=== PATIENT | male | born 1945 | race Caucasian/White ===

== ENCOUNTER 2021-12-20 09:10 | Outpatient (REF) | payer MEDICARE, SELFPAY ==
--- NOTE | ~2021-12-20 | XR_ITS ---
EXAMINATION: XR KNEE AP STANDING CLINICAL INFORMATION: Pain COMPARISON: None TECHNIQUE: AP and lateral bilateral standing view of the knees was obtained. FINDINGS: Left: Bone alignment is normal. No fracture or dislocation is seen. There is mild arthritis at the femoral tibial and patellofemoral joints with small osteophytes. There is a small joint effusion. Right: Bone alignment is normal. No fracture or dislocation is seen. There is mild arthritis at the patellofemoral joint with small osteophytes. There is no joint effusion. XR/XR knee standing BI IMPRESSION: Mild bilateral arthritis.
[2021-12-20 11:29] LABS: MANUAL DIFF FLAG NO
[2021-12-20 11:32] LABS: Appearance Urine CLEAR; Color Urine YELLOW; Glucose Urine UA NEG (NEG); Leukocyte Esterase Urine NEG (NEG); Nitrite Urine NEG (NEG); Urine Blood NEG (NEG); Urine Ketones NEG (NEG); Urine Protein TRACE MG/DL (NEG-TRACE)
[2021-12-20 11:58] LABS: Basophils Percent Auto 0.6 % (0-2); Eosinophils Absolute Auto 0.1 X10*3/uL (0.0-0.4); Eosinophils Percent Auto 0.7 % (0-4); Hematocrit 45.7 % (42.0-52.0); Hemoglobin 15.3 g/dl (14.0-18.0); Imm Gran Abs Auto 0.05 X10*3/uL (0.00-0.03); Imm Gran Pct Auto 0.7 % (0.0-0.4); Lymphocytes Absolute Auto 1.8 X10*3/uL (1.2-4.9); Lymphocytes Percent Auto 25.9 % (20-40); Mean Corpuscular HGB Conc 33.5 g/dl (31.0-36.0); Mean Corpuscular Hemoglobin 30.9 pg (27.0-33.0); Mean Corpuscular Volume 92.3 fL (80.0-98.0); Mean Platelet Volume 8.7 fL (9.4-12.4); Monocytes Absolute Auto 0.7 X10*3/uL (0.1-1.2); Monocytes Percent Auto 9.9 % (2-11); Neutrophils Absolute Auto 4.3 x10*3/uL (2.0-8.3); Neutrophils Percent Auto 62.2 % (45-73); Platelet Count 171 X10*3/uL (160-400); Red Blood Count 4.95 X10*6/uL (4.60-5.80); Red Cell Distribution Width 13.2 % (11.0-16.0)
[2021-12-20 12:23] LABS: Prostate Specific Antigen Scr 3.08 ng/mL (<0.05-4.0); TSH reflex Free T4 1.08 uIU/mL (0.32-4.0)
[2021-12-20 13:00] LABS: Alanine Aminotransferase 21 U/L (0-40); Albumin Level 4.3 g/dL (3.5-5.0); Alkaline Phosphatase 69 U/L (39-117); Anion Gap 11 (12-20); Aspartate Amino Transferase 21 U/L (5-37); Bilirubin Total 1.1 mg/dL (0.0-1.0); Blood Urea Nitrogen 19 mg/dL (9-16); Calcium 9.4 mg/dL (8.4-10.2); Carbon Dioxide 27 mmol/L (22-29); Chloride 105 mmol/L (96-108); Cholesterol 302 mg/dL; Estimated Glomerular Filt Rate > 60; Glucose Fasting 119 mg/dL (60-99); HDL Cholesterol 59 mg/dL; LDL Cholesterol Calculated 227 mg/dl; Potassium 4.9 mmol/L (3.3-5.1); Sodium 138 mmol/L (135-145); Total Protein 7.8 g/dL (6.5-8.0); Triglycerides 83 mg/dL
== END 2021-12-20 09:11 | disposition home or self-care (01) ==
LOC: HO.HMGCX 09:10
PROVIDERS: PCP Nurse Practitioner Family; Visit Provider Nurse Practitioner Family
DX: Z12.5 Encounter for screening for malignant neoplasm of prostate (principal); M25.561 Pain in right knee; M25.562 Pain in left knee; I10 Essential (primary) hypertension
CPT/HCPCS: 36415; 73565; 80053; 80061; 81003; 84153; 84443; 85025

== ENCOUNTER → 2022-01-10 10:20 | Outpatient (BNVA) | payer MEDICARE, SELFPAY | PROVIDERS: PCP Nurse Practitioner Family; Visit Provider Physician Assistant | DX: Z12.11 Encounter for screening for malignant neoplasm of colon (principal); R56.9 Unspecified convulsions; G47.30 Sleep apnea, unspecified | CPT/HCPCS: 99202 ==

== ENCOUNTER 2022-02-17 09:49 | Outpatient (REF) | payer MEDICARE, SELFPAY ==
[2022-02-17 11:28] LABS: MANUAL DIFF FLAG NO
[2022-02-17 11:32] LABS: Basophils Absolute Auto 0.1 X10*3/uL (0.0-0.2); Basophils Percent Auto 0.8 % (0-2); Eosinophils Absolute Auto 0.2 X10*3/uL (0.0-0.4); Eosinophils Percent Auto 2.5 % (0-4); Hematocrit 42.7 % (42.0-52.0); Hemoglobin 14.5 g/dl (14.0-18.0); Imm Gran Abs Auto 0.05 X10*3/uL (0.00-0.03); Imm Gran Pct Auto 0.8 % (0.0-0.4); Lymphocytes Absolute Auto 1.9 X10*3/uL (1.2-4.9); Lymphocytes Percent Auto 31.2 % (20-40); Mean Corpuscular Hemoglobin 31.6 pg (27.0-33.0); Mean Platelet Volume 8.6 fL (9.4-12.4); Monocytes Absolute Auto 0.6 X10*3/uL (0.1-1.2); Monocytes Percent Auto 10.5 % (2-11); Neutrophils Absolute Auto 3.3 x10*3/uL (2.0-8.3); Neutrophils Percent Auto 54.2 % (45-73); Platelet Count 184 X10*3/uL (160-400); Red Blood Count 4.59 X10*6/uL (4.60-5.80); Red Cell Distribution Width 13.6 % (11.0-16.0)
[2022-02-17 12:00] LABS: Alanine Aminotransferase 15 U/L (0-40); Alkaline Phosphatase 70 U/L (39-117); Anion Gap 13 (12-20); Aspartate Amino Transferase 18 U/L (5-37); Blood Urea Nitrogen 15 mg/dL (9-16); Calcium 9.2 mg/dL (8.4-10.2); Carbon Dioxide 27 mmol/L (22-29); Chloride 105 mmol/L (96-108); Cholesterol 234 mg/dL; Estimated Glomerular Filt Rate > 60; Glucose Fasting 99 mg/dL (60-99); HDL Cholesterol 50 mg/dL; LDL Cholesterol Calculated 169 mg/dl; Sodium 140 mmol/L (135-145); Total Protein 7.3 g/dL (6.5-8.0); Triglycerides 75 mg/dL
== END 2022-02-17 09:50 | disposition home or self-care (01) ==
LOC: HO.HMGCLDS 09:49
PROVIDERS: PCP Nurse Practitioner Family; Visit Provider Nurse Practitioner Family
DX: E78.5 Hyperlipidemia, unspecified (principal); I10 Essential (primary) hypertension
CPT/HCPCS: 36415; 80053; 80061; 85025

== ENCOUNTER 2022-06-19 09:36 | Outpatient (REF) | payer MEDICARE, SELFPAY ==
[2022-06-19 11:30] LABS: MANUAL DIFF FLAG NO
[2022-06-19 11:36] LABS: Basophils Absolute Auto 0.1 X10*3/uL (0.0-0.2); Eosinophils Absolute Auto 0.2 X10*3/uL (0.0-0.4); Eosinophils Percent Auto 2.4 % (0-4); Hematocrit 46.6 % (42.0-52.0); Hemoglobin 15.8 g/dl (14.0-18.0); Imm Gran Abs Auto 0.05 X10*3/uL (0.00-0.03); Imm Gran Pct Auto 0.8 % (0.0-0.4); Lymphocytes Absolute Auto 2.1 X10*3/uL (1.2-4.9); Mean Corpuscular HGB Conc 33.9 g/dl (31.0-36.0); Mean Corpuscular Volume 94.5 fL (80.0-98.0); Mean Platelet Volume 8.6 fL (9.4-12.4); Monocytes Absolute Auto 0.6 X10*3/uL (0.1-1.2); Monocytes Percent Auto 8.8 % (2-11); Neutrophils Absolute Auto 3.4 x10*3/uL (2.0-8.3); Platelet Count 163 X10*3/uL (160-400); Red Blood Count 4.93 X10*6/uL (4.60-5.80); Red Cell Distribution Width 12.3 % (11.0-16.0); White Blood Count 6.2 X10*3/uL (4.8-10.8)
[2022-06-19 11:50] LABS: Appearance Urine Clear; Color Urine Yellow; Glucose Urine UA Negative (Negative); Leukocyte Esterase Urine Trace (Negative); Nitrite Urine Negative (Negative); UMIC TRIGGER UA YES; Urine Blood Negative (Negative); Urine Ketones 15 mg/dL (Negative); Urine Protein Trace mg/dL (Neg-Trace)
[2022-06-19 11:54] LABS: Bacteria Urine None Seen (None Seen); Hyaline Casts Urine 0-2 /LPF (0-2); RBC Urine 0-2 /HPF (0-2); Squamous Epithelial Cell Urine 0-2 /HPF (0-2); WBC Urine 0-5 /HPF (0-5)
[2022-06-19 12:31] LABS: Alanine Aminotransferase 19 U/L (0-40); Albumin Level 4.2 g/dL (3.5-5.0); Alkaline Phosphatase 75 U/L (39-117); Anion Gap 12 (12-20); Aspartate Amino Transferase 19 U/L (5-37); Bilirubin Total 1.1 mg/dL (0.0-1.0); Blood Urea Nitrogen 13 mg/dL (9-16); Calcium 9.4 mg/dL (8.4-10.2); Carbon Dioxide 28 mmol/L (22-29); Chloride 106 mmol/L (96-108); Cholesterol 269 mg/dL; Estimated Glomerular Filt Rate > 60; Glucose Fasting 94 mg/dL (60-99); HDL Cholesterol 53 mg/dL; LDL Cholesterol Calculated 194 mg/dl; Potassium 4.3 mmol/L (3.3-5.1); Prostate Specific Antigen Scr 2.97 ng/mL (<0.05-4.0); Sodium 142 mmol/L (135-145); TSH reflex Free T4 1.79 uIU/mL (0.32-4.0); Total Protein 7.6 g/dL (6.5-8.0); Triglycerides 112 mg/dL
[2022-06-21 07:14] LABS: Lyme Abs Screen <0.90 index
== END 2022-06-19 09:37 | disposition home or self-care (01) ==
LOC: HO.HMGCLDS 09:36
PROVIDERS: PCP Nurse Practitioner Family; Visit Provider Nurse Practitioner Family
DX: Z12.5 Encounter for screening for malignant neoplasm of prostate (principal); T14.8XXA Other injury of unspecified body region, initial encounter; W57.XXXA Bitten or stung by nonvenomous insect and other nonvenomous arthropods, initial encounter; E78.5 Hyperlipidemia, unspecified; R32 Unspecified urinary incontinence
CPT/HCPCS: 36415; 80053; 80061; 81001; 84153; 84443; 85025; 86617; 86618; 87086

== ENCOUNTER 2022-11-03 09:00 | Outpatient (RCR) | payer MEDICARE, SELFPAY ==
--- NOTE | 2022-09-26 11:49 | MHC.PT.EP ---
[facility] [place] Office [place] Office [place] Office [address] Chase Higgins [address] [phone] F: [phone] F: [phone] F: [phone] F: [phone] Physical Therapy Plan of Care Date of Evaluation: Date of Surgery: n/a Diagnosis: pain in knee, mild ostero B Assessment: Patient is a 76 year old male presenting to PT with complaints of pain in his B knees. Pt reports onset of pain began about 1 year ago due to insidious onset. He presents today with impairments in pain, knee ROM, knee strength, hip strength. Pt's current occupation is retired, with baseline physical activities including ADLs, stair negotiation, ambulation. 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 Clinical presentation today is most consistent with signs and sx associated with xray findings of OA and pt will benefit from skilled PT 2 week x 4 weeks to address the following problems and impairments noted upon evaluation: pain, knee ROM, knee strength, hip strength. These problems limit the patient with the following functional activities: ADLs, ambulating, stair negotiating, picking up objects from the floor. The prescribed treatment plan of care is medically necessary. Co-morbidities of seizures, HTN were identified and taken into considerations of plan of care. Pt was educated on HEP, role of PT, prognosis, POC. Frequency and Duration: The patient will be seen 2 x week x 4 weeks Short Term Goals: Pt will demonstrate B knee extension strength of 5/5 in 2 weeks. Pt will demonstrate improved hip MMT strength by 13 grade in 2 weeks for improved lumbopelvic stability. Pt will report less stiffness with flexing/extending his knees in 2 weeks for improved mobility. Hand Painter Goals: Pt will demonstrate improved LEFI score by 9 points in 4 weeks for improved functional mobility. Pt will demonstrate reports of improved ability to negotiate stairs with min to no pain/difficulty in 4 weeks for return to PLOF. 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 Treatment Plan: Modalities to reduce pain, spasms and effusion. Manual therapy to restore motion and function. Therapeutic exercise to improve strength and flexibility. Neuromuscular re-education for posture and balance. Therapeutic activities to return to functional activities of daily living. Electronically signed by: Delores García, PT, DPT, ATC Please sign and return to therapist. Thank you for your referral.
--- NOTE | 2022-11-03 09:55 | MHC.PT.DC ---
[facility] [place] Office [place] Office [place] Office [address] Chase Higgins [address] [phone] F: [phone] F: [phone] F: [phone] F: [phone] Physical Therapy Discharge Report Diagnosis: pain in knee, mild ostero B Date of Surgery: n/a Date of Evaluation: 09/26/22 Date of Discharge: 11/03/22 Treatments to Date: 10 Cancellations to Date: 0 No Shows to Date: 0 Discharge Status: Improved Function Independent with HEP Discharge Summary: 11/03/2022: Pt has made progress since beginning skilled PT. He is independent and compliant with his HEP at this time and understands importance of halfway continuation. We again reviewed that it may not be a safe/appropriate activity to return to riding a regular road bike due to balance and ROM limitations. Discussed and recommended other options that reduce balance component like 3 wheeled bike. At this time max benefits of PT have been provided and skilled PT is no longer indicated at this time. Pt in agreement with d/c today. Electronically signed by: Delores García, PT, DPT, ATC Please sign and return to therapist. Thank you for your referral.
== END 2022-11-03 09:55 | disposition home or self-care (01) ==
LOC: HO.PTCHIC 09:00
PROVIDERS: PCP Nurse Practitioner Family; Visit Provider Nurse Practitioner Family
DX: M25.561 Pain in right knee (principal)
CPT/HCPCS: 97110; 97112; 97161; 97530

== ENCOUNTER 2023-02-13 09:16 | Outpatient (AMB) | payer MEDICARE, SELFPAY ==
--- NOTE | 2023-02-13 09:20 | A.OFFVIS_ITS ---
Intake Vital Signs 02/13/23 09:30 Height 5 ft 9 in Weight 216 lb BMI 31.9 BP 122/82 Blood Pressure Location Lt brachial Position Sitting Pulse 66 Pulse Source Pulse Oximeter Pulse Oximetry (%) 95 Oxygen Delivery Method Room Air Intake Visit Reasons: INP-Convulsions/gait/mobility -confirmed. 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 He also has h/o seizures ? alcohol related - followed up by Dr. Stubbs at [facility]. He was diagnosed with sleep apnea in 2018 - started on CPAP.He was seen by Dr. Robles and has been on CPAP 10-14 since then. His home care company is [facility]. He stopped getting supplies from his REspiratory therapists. His 90 day compliance data shows 96% usage Daily usage hrs-9 pressure 10-14 AHI 6 He has h/o heavy alcohol use . He started drinking heavily in 2018. He drinks 3- 4 glasses of wine or more. He had his first seizure in 2019 - EEG showed a mar ker for partial seizures, MRI showed white matter changes.2 and 3rd seizure was 2020. Last seizure was last week- was admitted to [facility]- he was drinking 3-4 glasses of wine.He was told that his seizures were related to alcohol but Dr. Stubbs s notes imply an abnormal EEG and partial seizure. He has an appointment next month.He does not drive He has h/o gait issues mainly related to his arthritis. 1 year ago he had a fall . He has neck stiffness and pain since then . He also has h/o urinary incontinence since 2020.He has urinary frequency urgency He denies radicular pain in his UE [facility] Medical History (Updated 02/13/23 @ 10:32 by Angelia Recinos MD) Cervicalgia Elevated cholesterol HTN (hypertension) Obstructive sleep apnea Seizure disorder Seizures Sleep apnea Surgical History Hx of colonoscopy Family History Father HTN (hypertension) Mother No problems noted. Family/Other Stroke Cancer Breast cancer Social History Housing: House Alcohol intake: former Patient Tobacco Use Status: Never used Tobacco e-Cigarette/Vaping Use: Never Used Second Hand Smoke Exposure: No service: No Current occupational status: retired Cognitive needs: No Hearing needs: No Vision needs: No Review of Systems Const Denies chills and Denies fever(s) Eyes Denies blurry vision ENT Denies vertigo, Denies dizziness and Denies sore throat Card Denies chest pain at rest, Denies chest pain with activity, Denies diaphoresis, Denies dyspnea and Denies dyspnea on exertion Resp Denies cough, Denies dyspnea, Denies dyspnea on exertion and Denies wheezing GI Denies abdominal pain, Denies melena, Denies hematochezia, Denies constipation, Denies diarrhea and Denies loose stools Denies hematuria and Reports urinary incontinence Musc Denies numbness and Denies tingling Skin/Breast Denies lesions Neuro Denies vertigo, Denies dizziness, Denies numbness and Denies tingling Psych Denies anxiety, Denies depression, Denies homicidal ideation, Denies suicidal ideation and Denies other (substance abuse) Aller/Immun Denies wheezing Physical Exam Vital Signs: Last Vital Signs Pulse 66 02/13/23 09:30 BP 122/82 02/13/23 09:30 Pulse Ox 95 02/13/23 09:30 Oxygen Delivery Method Room Air 02/13/23 09:30 BMI result Body Mass Index 31.9 Const General: cooperative, healthy appearing, comfortable and no acute distress Nutritional Appearance: average body habitus Orientation/consciousness: patient oriented x3 Eyes Pupils: Equal, round and reactive pupils present Neuro Other: neck- restricted range of motion gait- shorter steps, slow General: patient oriented x3, tone normal, moves all extremities and no focal motor deficits Cranial nerves: Yes Facial sensation intact/muscles of mastication intact, Yes Equal, round and reactive pupils present, Yes Bilaterally intact EOM present, Yes Nystagmus not present, Yes Normal facial strength present, Yes Midline tongue present and Yes Symmetric palate elevation present Cognition (Neuro): normal cognition Motor exam (neuro): 5/5 motor strength present throughout and Normal motor muscle tone present throughout Deep tendon reflexes (DTR's): Right triceps reflex intensity grade: 2+, Left triceps reflex intensity grade: 2+, Rt Biceps (C5, C6): 2+, Left biceps reflex intensity grade: 2+, Right brachioradialis reflex intensity grade: 2+, Left brac hioradialis reflex intensity grade: 2+, Right patellar reflex intensity grade: 3+ and Left patellar reflex intensity grade: 3+ Coordination: [id number] test normal Assessment & Plan Assessment & Plan (1) Obstructive sleep apnea: Code(s): G47.33 - Obstructive sleep apnea (adult) (pediatric) (2) Cervicalgia: Comment: with shuffling urinary incontinence, ? cervical myelopathy Code(s): M54.2 - Cervicalgia (3) Seizure disorder: Code(s): G40.909 - Epilepsy, unspecified, not intractable, without status epilepticus Plan Contact [facility] for new supplies Compliance stressed with CPAP MRI C spine to evaluate cord compression / spinal stenosis continue gabapentin and f/u with Dr. Stubbs Orders: Orders MR cervical spine wo con Today M54.2 - Cervicalgia, R26.89 - Other abnormalities of gait and mobility, R32 - Unspecified urinary incontinence Coding Level of Care Code New Pt Level 4 (73472) Diagnoses Obstructive sleep apnea G47.33 Cervicalgia M54.2 Seizure disorder G40.909
[2023-02-13 09:30] VITALS: BP 122/82; PULSE 66; O2SAT 95; BMI 31.9
== END 2023-02-13 10:22 | disposition home or self-care (01) ==
PROVIDERS: Visit Provider Psychiatry & Neurology Neurology
DX: G47.33 Obstructive sleep apnea (adult) (pediatric) (principal); M54.2 Cervicalgia; G40.909 Epilepsy, unspecified, not intractable, without status epilepticus
CPT/HCPCS: 99204

== ENCOUNTER → 2023-02-13 09:16 | Outpatient (BNVA) | payer MEDICARE, SELFPAY | PROVIDERS: Visit Provider Psychiatry & Neurology Neurology | DX: G47.33 Obstructive sleep apnea (adult) (pediatric) (principal); G40.909 Epilepsy, unspecified, not intractable, without status epilepticus; M54.2 Cervicalgia | CPT/HCPCS: 99202 ==

== ENCOUNTER 2023-02-19 10:47 | Outpatient (AMB) | payer MEDICARE, SELFPAY ==
--- NOTE | 2023-02-19 10:56 | A.OFFPC_ITS ---
Vital Signs 02/19/23 10:57 Height 5 ft 9 in Weight 215 lb BMI 31.7 BP 142/88 H Blood Pressure Location Lt brachial Position Sitting Pulse 65 Pulse Source Pulse Oximeter Pulse Oximetry (%) 93 Oxygen Delivery Method Room Air Intake Visit Reasons: HDF seizure, htn Allergies No Known Allergies Allergy (Verified 02/19/23 13:33) Medication List - Last Reconciled 02/19/23 by MADHAVI Agustin- amlodipine 5 mg PO DAILY CPAP (CPAP Machine/Device) As directed gabapentin 600 mg PO BID lisinopril 40 mg PO DAILY [raised toilet seat daily use NS] Tobacco use date assessed: 02/19/23 Fall risk assessment: No Falls in past year Last assessed Fall Risk: 02/19/23 Dental Screening Dental Screen Date: 02/19/23 Did you have a dental visit in the last 12 months?: No Did you have a dental problem in the last 6 months where you did not have access to dental care?: No Was dental information given to patient?: Patient has dentist HPI HDF seizure, htn HPI Details Pt was seen in the ER on 02/08 with breakthrough seizures. Pt's reported seizure activity with confusion and abnormal breathing after. Pt was noted to hypoxic in the 80s and was started on 6L of O2. Pt was able to be weaned off oxygen in the ER. Pt was noted to have anion gap metabolic acidosis as well as transaminitis which resolved over time. Head CT was negative for acute abnormality. CTA of the chest was negative for PE but showed low lung volu mes. Neurology was consulted who recommended pt's keppra be stopped and gabapentin increased to 600mg bid. Pt was advised not to take gabapentin with alcohol as this may have caused his seizure activity. Initial evaluation showed elevated troponin, echo showed normal LVEF size, EF of 55-60%, basal inferior wall akinesis with normal diastolic function which is largely unchanged from prior. Troponin elevation was thought to be demand related, no evidence of ischemia. It was recommended that pt follow up with cardiology outpatient, will place referral. Pt was noted to be hypertensive during admission. He was started on amlodipine. Pt reports doing well overall. He does report some short-term memory loss (baseline). Will refer to memory clinic. HTN: Blood pressure is managed with amlodipine 5mg and lisinopril 40mg. Will have pt/pt's monitor his blood pressure at home. Denies chest pain, shortness of breath, headache, dizziness, and blurred vision. Will do an EKG in office today. Pt no longer drinks alcohol. He has a follow up with neuro in the near future [facility] Medical History Cervicalgia Elevated cholesterol HTN (hypertension) Obstructive sleep apnea Seizure disorder Seizures Sleep apnea Surgical History Hx of colonoscopy Family History Father HTN (hypertension) Mother No problems noted. Family/Other Stroke Cancer Breast cancer Social History Housing: House Alcohol intake: former Patient Tobacco Use Status: Never used Tobacco e-Cigarette/Vaping Use: Never Used Second Hand Smoke Exposure: No service: No Current occupational status: retired Cognitive needs: No Hearing needs: No Vision needs: No Questionnaire Thrive Questionnaire Date Thrive assessed: 05/23/22 MOSES-7 AMB Questionnaire MOSES-7 Date MOSES - 7 assessed: 05/23/22 Source: Developed by Drs. See Elder, Elena Jorge, Keith Calvillo and colleagues, with an educational kell from [employer]. Review of Systems Const Reports as per HPI Physical exam (Primary Care) Vital Signs: Last Vital Signs Pulse 65 02/19/23 10:57 BP 142/88 H 02/19/23 10:57 Pulse Ox 93 02/19/23 10:57 Oxygen Delivery Method Room Air 02/19/23 10:57 BMI result Body Mass Index 31.7 Tobacco/Smoking Status: Tobacco use Status Tobacco use date assessed 02/19/23 02/19/23 11:05 Patient Tobacco Use Status Never used Tobacco 02/19/23 10:57 e-Cigarette/Vaping Use Never Used 02/19/23 10:57 Thrive Assessment: Date of Thrive Assessment Date Thrive assessed 05/23/22 02/19/23 10:57 Const General: cooperative Nutritional Appearance: obese Orientation/consciousness: patient oriented x3 Resp Effort & Inspection: normal respiratory effort Auscultation: clear to auscultation bilaterally Cardio Rate: regular rate Rhythm: regular rhythm Heart sounds: S1 normal heart sound present and S2 normal heart sound present Neuro Other: - romberg General: patient oriented x3 Cranial nerves: Yes CN's II-XII intact bilaterally Extrem Right lower extremity: edema (trace) Left lower extremity: edema (trace) Psych Appearance: grossly normal Mental Status: mental status grossly normal Speech and movement: Normal speech and movement present Affect: normal affect Attitude: cooperative Thought process: Normal thought process present Thought content: Normal thought content present Insight: Good insight present (Psych) Judgement: Good judgement present (Psych) Assessment and Plan Assessment & Plan (1) HTN (hypertension): Code(s): I10 - Essential (primary) hypertension (2) Dyslipidemia: Code(s): E78.5 - Hyperlipidemia, unspecified (3) Screening PSA (prostate specific antigen): Code(s): Z12.5 - Encounter for screening for malignant neoplasm of prostate (4) Seizure: Comment: Last seizure- 02/21- Code(s): R56.9 - Unspecified convulsions (5) Cardiac akinesia: Code(s): I51.89 - Other ill-defined heart diseases (6) Seizure disorder: Code(s): G40.909 - Epilepsy, unspecified, not intractable, without status epilepticus Plan The patient agreed to the use of a medical center representative for this encounter. Scribed for STEPHEN Choi by Alma Dhillon medical center representative, on 02/19/2023 at 11:25 EST. Orders: Orders Complete Blood Count Auto Diff Today E78.5 - Hyperlipidemia, unspecified, I10 - Essential (primary) hypertension Comprehensive [place]. Panel Fast Today E78.5 - Hyperlipidemia, unspecified, I10 - Essential (primary) hypertension Lipid Panel Today E78.5 - Hyperlipidemia, unspecified, I10 - Essential (primary) hypertension TSH reflex Free T4 Today E78.5 - Hyperlipidemia, unspecified, I10 - Essential (primary) hypertension UA CC w/rflx Micro + Cult Today E78.5 - Hyperlipidemia, unspecified, I10 - Essential (primary) hypertension Prostate Specific Antigen Scr Today Z12.5 - Encounter for screening for malignant neoplasm of prostate AMB EKG-In Office Today G40.909 - Epilepsy, unspecified, not intractable, without status epilepticus, I10 - Essential (primary) hypertension, I51.89 - Other ill-defined heart diseases Referrals Neurology Referral R41.3 - Other amnesia Cardiology Referral I45.9 - Conduction disorder, unspecified, I51.89 - Other ill-defined heart diseases Medications: New amlodipine 5 mg PO DAILY 90 tabs 0RF Coding Level of Care Code Est Pt Level 3 (82974) Diagnoses HTN (hypertension) I10 Dyslipidemia E78.5 Screening PSA (prostate specific antigen) Z12.5 Seizure R56.9 Cardiac akinesia I51.89 Seizure disorder G40.909
[2023-02-19 10:57] VITALS: BP 142/88; PULSE 65; O2SAT 93; BMI 31.7
== END 2023-02-19 12:11 | disposition home or self-care (01) ==
PROVIDERS: PCP Nurse Practitioner Family; Visit Provider Nurse Practitioner Family
DX: I10 Essential (primary) hypertension (principal); E78.5 Hyperlipidemia, unspecified; Z12.5 Encounter for screening for malignant neoplasm of prostate; I51.89 Other ill-defined heart diseases; G40.909 Epilepsy, unspecified, not intractable, without status epilepticus
CPT/HCPCS: 99213

== ENCOUNTER 2023-02-22 09:33 | Outpatient (REF) | payer MEDICARE, SELFPAY ==
[2023-02-22 11:21] LABS: MANUAL DIFF FLAG NO
[2023-02-22 11:43] LABS: Basophils Absolute Auto 0.1 X10*3/uL (0.0-0.2); Basophils Percent Auto 0.8 % (0-2); Eosinophils Absolute Auto 0.2 X10*3/uL (0.0-0.4); Eosinophils Percent Auto 2.3 % (0-4); Hematocrit 42.2 % (42.0-52.0); Hemoglobin 14.4 g/dl (14.0-18.0); Imm Gran Abs Auto 0.03 X10*3/uL (0.00-0.03); Imm Gran Pct Auto 0.5 % (0.0-0.4); Lymphocytes Absolute Auto 2.3 X10*3/uL (1.2-4.9); Lymphocytes Percent Auto 34.6 % (20-40); Mean Corpuscular HGB Conc 34.1 g/dl (31.0-36.0); Mean Corpuscular Hemoglobin 31.4 pg (27.0-33.0); Mean Corpuscular Volume 92.1 fL (80.0-98.0); Mean Platelet Volume 8.6 fL (9.4-12.4); Monocytes Absolute Auto 0.7 X10*3/uL (0.1-1.2); Monocytes Percent Auto 10.6 % (2-11); Neutrophils Absolute Auto 3.4 x10*3/uL (2.0-8.3); Neutrophils Percent Auto 51.2 % (45-73); Platelet Count 214 X10*3/uL (160-400); Red Blood Count 4.58 X10*6/uL (4.60-5.80); Red Cell Distribution Width 11.9 % (11.0-16.0); White Blood Count 6.6 X10*3/uL (4.8-10.8)
[2023-02-22 13:06] LABS: Alanine Aminotransferase 29 U/L (0-40); Albumin Level 3.9 g/dL (3.5-5.0); Alkaline Phosphatase 55 U/L (39-117); Anion Gap 11 (12-20); Aspartate Amino Transferase 19 U/L (5-37); Bilirubin Total 1.1 mg/dL (0.0-1.0); Blood Urea Nitrogen 16 mg/dL (9-16); Calcium 9.8 mg/dL (8.4-10.2); Carbon Dioxide 26 mmol/L (22-29); Chloride 108 mmol/L (96-108); Cholesterol 211 mg/dL (<200); Estimated Glomerular Filt Rate > 60; Glucose Fasting 77 mg/dL (60-99); HDL Cholesterol 36 mg/dL (>40); LDL Cholesterol Calculated 151 mg/dL (<100); Potassium 3.9 mmol/L (3.3-5.1); Sodium 141 mmol/L (135-145); Total Protein 7.6 g/dL (6.5-8.0); Triglycerides 120 mg/dL (<150)
[2023-02-22 13:11] LABS: Prostate Specific Antigen Scr 1.65 ng/mL (<0.05-4.0)
[2023-02-22 13:13] LABS: TSH reflex Free T4 0.89 uIU/mL (0.32-4.0)
== END 2023-02-22 09:34 | disposition home or self-care (01) ==
LOC: HO.HMGCLDS 09:33
PROVIDERS: PCP Nurse Practitioner Family; Visit Provider Nurse Practitioner Family
DX: E78.5 Hyperlipidemia, unspecified (principal); I10 Essential (primary) hypertension; Z12.5 Encounter for screening for malignant neoplasm of prostate
CPT/HCPCS: 36415; 80053; 80061; 84153; 84443; 85025

== ENCOUNTER 2023-05-10 08:33 | Outpatient (REF) | payer MEDICARE, SELFPAY ==
--- NOTE | ~2023-05-10 | MR_ITS ---
EXAMINATION: MR CERVICAL SPINE WITHOUT CONTRAST CLINICAL INFORMATION: Cervicalgia COMPARISON: None TECHNIQUE: MRI of the cervical spine was obtained using routine sequences without contrast. FINDINGS: The craniocervical junction is intact. Reversal of the lower cervical lordosis. Grade 1 anterolisthesis at C4-C5 greater than C5-C6. Vertebral body heights are normal without acute compression fracture. No suspicious osseous lesion. Diffuse disc desiccation with moderate to severe C5-C6 and milder C4-C5 and C6-C7 disc height loss. Trace type I Modic endplate change at C4-C5. There are multilevel degenerative changes with level by level detail as follows: C2-C3: Left greater than right uncovertebral spurring and mild bilateral facet arthrosis. No spinal canal or neural foraminal stenosis. C3-C4: Disc osteophyte complex with left greater than right uncovertebral joint hypertrophy and left greater than right facet arthrosis. No spinal canal stenosis. Severe left and mild right neural foraminal stenosis. C4-C5: Uncovertebral posterior disc/disc bulge eccentric to the left with uncovertebral spurring and bilateral facet arthrosis. No spinal canal or significant neural foraminal stenosis. C5-C6: Disc osteophyte complex with central disc osteophyte protrusion, bilateral uncovertebral spurring and mild bilateral facet arthrosis. Mild spinal canal stenosis with indentation and flattening along the left paramedian ventral cord. No neural foraminal stenosis. C6-C7: Disc osteophyte complex with shallow right paracentral disc osteophyte protrusion and bilateral uncovertebral spurring. No spinal canal stenosis, noting flattening along the right ventral cord. No neural foraminal stenosis. C7-T1: No spinal canal or neural foraminal stenosis. No cord signal abnormality. No epidural fluid collection, mass, or hematoma. No significant abnormalities of the paraspinal musculature. The flow voids of the major cervical vessels are maintained. Retropharyngeal course of the left greater than right common carotid arteries. 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 Incompletely characterized 4 mm rounded T1 hypointense, T2 hyperintense focus along the lower midbrain in the ventral periaqueductal region for which further evaluation with contrast-enhanced brain MRI is advised. Dependent debris/retention cyst and a posterior left ethmoid air cell. No demonstrated abnormalities in the visualized neck. MR/MR cervical spine wo con IMPRESSION: 1. Multilevel cervical spondylosis as above without high-grade spinal canal stenosis. At C5-C6, there is mild spinal canal stenosis with indentation and flattening along the left paramedian ventral cord. There is also flattening along the right ventral cord at C6-C7. No cord compression or cord signal abnormality. Severe left C3-C4 neural foraminal stenosis. 2. Incompletely characterized 4 mm rounded T1 hypointense, T2 hyperintense focus along the lower midbrain in the ventral periaqueductal region for which further evaluation with contrast-enhanced brain MRI is advised. Findings to be called to the ordering clinician by a [place] [facility] Physician Lift Truck Operator. 3. 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
== END 2023-05-10 08:34 | disposition home or self-care (01) ==
LOC: HO.MRI 08:33
PROVIDERS: PCP Nurse Practitioner Family; Visit Provider Psychiatry & Neurology Neurology
DX: M54.2 Cervicalgia (principal); R26.89 Other abnormalities of gait and mobility; R32 Unspecified urinary incontinence
CPT/HCPCS: 72141

== ENCOUNTER 2023-05-16 09:32 | Outpatient (REF) | payer MEDICARE, SELFPAY ==
[2023-05-16 12:19] LABS: Alanine Aminotransferase 19 U/L (0-40); Alkaline Phosphatase 57 U/L (39-117); Anion Gap 11 (12-20); Aspartate Amino Transferase 16 U/L (5-37); Bilirubin Total 0.9 mg/dL (0.0-1.0); Blood Urea Nitrogen 14 mg/dL (9-16); Calcium 9.5 mg/dL (8.4-10.2); Carbon Dioxide 30 mmol/L (22-29); Chloride 107 mmol/L (96-108); Cholesterol 187 mg/dL (<200); Estimated Glomerular Filt Rate > 60; Glucose Fasting 94 mg/dL (60-99); HDL Cholesterol 50 mg/dL (>40); LDL Cholesterol Calculated 125 mg/dL (<100); Potassium 4.7 mmol/L (3.3-5.1); Sodium 143 mmol/L (135-145); Total Protein 7.5 g/dL (6.5-8.0); Triglycerides 60 mg/dL (<150)
[2023-05-16 12:30] LABS: Prostate Specific Antigen Scr 1.93 ng/mL (<0.05-4.0)
[2023-05-16 12:36] LABS: TSH reflex Free T4 1.22 uIU/mL (0.32-4.0)
== END 2023-05-16 09:33 | disposition home or self-care (01) ==
LOC: HO.HMGCLDS 09:32
PROVIDERS: PCP Nurse Practitioner Family; Visit Provider Nurse Practitioner Family
DX: Z00.00 Encounter for general adult medical examination without abnormal findings (principal); Z12.5 Encounter for screening for malignant neoplasm of prostate; E78.5 Hyperlipidemia, unspecified
CPT/HCPCS: 36415; 80053; 80061; 84153; 84443

== ENCOUNTER 2023-06-05 08:56 | Outpatient (AMB) | payer MEDICARE, SELFPAY ==
[2023-06-05 08:57] VITALS: BP 126/72; PULSE 66; BMI 31.9
--- NOTE | 2023-06-05 08:57 | MHC.OFFVIS ---
Intake Vital Signs 06/05/23 08:57 Height 5 ft 9 in Weight 216 lb 0.848 oz BMI 31.9 BP 126/72 Blood Pressure Location Lt brachial Position Sitting Pulse 66 Intake Visit Reasons: NPV/Other ill-defined heart diseases/Lefty Hayes Intake Note: New patient hx in seizures concern there could be underline cardiac issue do cardiac issues Director Of Teenage Activities Required: No Medical Laboratory Technologist: Medical Laboratory Technologist Present Accompanied by: Spouse Allergies No Known Allergies Allergy (Verified 02/19/23 13:33) Medication List - Last Reconciled 06/05/23 by Jose Riley MD amlodipine 5 mg PO DAILY atorvastatin 10 mg PO BEDTIME 90 days CPAP (CPAP Machine/Device) As directed gabapentin 600 mg PO BID lisinopril 40 mg PO DAILY [raised toilet seat daily use NS] HPI HPI Comments History of Present Illness Details Thank you for referring Naresh in cardiology consultation today for noted abnormal echocardiogram when he was admitted to [facility] in January for seizure disorder. Patient is a 77-year-old male with prior history of hypertension, sleep apnea, hyperlipidemia and a seizure disorder. Some of the notes from [facility] suggests he has had prior CVA although I do not have the imaging findings. He does not recall ever having stroke. He is accompanied by his who confirms that finding. Patient echocardiogram which showed normal LV ejection fraction with basal inferior akinesis and was referred here for further evaluation. Patient does not recall ever having any heart problems in the past. He denies any prolonged chest pain. Denies any exertional chest pain or shortness of breath. He has limited exercise activity. He is referred here for further evaluation. He denies any prolonged palpitations, irregular heartbeat, lightheadedness, syncope. Denies any heart failure symptoms. He started having seizures in 2019 and this was his 4th episode that led to hospitalization. Currently using gabapentin for the same. In the past used to be on aspirin therapy but currently not taking aspirin. [facility]LY [facility] Medical History Abnormal MRI of head Seizure disorder Obstructive sleep apnea Cervicalgia Seizures Elevated cholesterol HTN (hypertension) Dyslipidemia Sleep apnea Surgical History Hx of colonoscopy Family History Father HTN (hypertension) Mother No problems noted. Family/Other Stroke Cancer Breast cancer Social History Housing: House Alcohol intake: former Patient Tobacco Use Status: Never used Tobacco e-Cigarette/Vaping Use: Never Used Second Hand Smoke Exposure: No service: No Current occupational status: retired Cognitive needs: No Hearing needs: No Vision needs: No Review of Systems Const Denies chills, Denies daytime sleepiness, Denies fatigue, Denies fever(s), Denies frequent falls, Denies poor appetite, Denies snoring, Denies stops breathing during sleep, Denies weakness, Denies weight gain and Denies weight loss Eyes Denies loss of vision ENT Denies dizziness and Denies hearing loss Card Denies chest pain, Denies claudication, Denies leg edema, Denies lightheadedness, Denies palpitations, Denies dyspnea, Denies dyspnea on exertion and Denies orthopnea Resp Denies cough, Denies excessive phlegm production, Denies dyspnea, Denies dyspnea on exertion, Denies snoring and Denies wheezing GI Denies abdominal pain, Denies hematochezia, Denies change in bowel habits, Denies nausea and Denies vomiting Denies dysuria and Denies urinary frequency Musc Denies arthralgias, Denies muscle weakness, Denies numbness and Denies other (frequent falls) Skin/Breast Denies nail changes and Denies rash Neuro Denies Abnormal speech present, Denies dizziness, Denies frequent falls, Denies loss of vision, Denies memory loss, Denies numbness and Denies weakness Psych Denies depression and Denies memory loss Endo Denies fatigue and Denies palpitations Raul/Lymph Reports easy bruising and Reports other (anemia) Aller/Immun Denies wheezing Physical Exam Vital Signs: Last Vital Signs Pulse 66 06/05/23 08:57 BP 126/72 06/05/23 08:57 BMI result Body Mass Index 31.9 Const General: cooperative, comfortable, no acute distress, alert and awake Nutritional Appearance: obese Orientation/consciousness: patient oriented x3 Limitations: no limitations HEENT Head: Yes normocephalic and Yes atraumatic Neck Neck: Yes trachea midline, Yes supple and Yes no JVD Resp Effort & Inspection: normal respiratory effort Auscultation: clear to auscultation bilaterally Cardio Jugular venous distension: no JVD Palpation: normal PMI Rate: regular rate Rhythm: regular rhythm Heart sounds: S1 normal heart sound present, S2 normal heart sound present, no click, no gallops, no murmurs and no rubs GI Auscultation: normal bowel sounds Skin General skin exam: no rashes or lesions noted Neuro General: patient oriented x3 and no focal motor deficits Speech: No Abnormal speech present Extrem General: Yes no clubbing, cyanosis or edema Office Procedures EKG Details: EKG shows normal sinus rhythm with left axis deviation with right bundle-branch block and left ventricular hypertrophy [id number], Complete Assessment & Plan Assessment & Plan (1) 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 He has no prior history of cardiovascular issues. He does have prior history of CVA and has multiple risk factors for vascular assist/atherosclerotic disease. Is possible that he could have silent myocardial ischemia. This needs to be further investigated. If he does have significant burden of ischemia may need further testing and/or treatment. Would suggest a exercise myocardial perfusion imaging. Would avoid Lexiscan in his case and switch to dobutamine if he cannot complete his exercise treadmill stress test. Further treatment based on the findings. If it only shows old scar treatment would be medical with he being on aspirin for secondary prevention. Continue aggressive blood pressure control which is currently well optimized. Continue high-intensity statin therapy with target goal LDL closer to 60 mg/dL. Continue participate in heart healthy lifestyle with regular physical activity and weight loss program. Continue CPAP treatment. If his brain imaging shows old infarct, should get workup for carotid artery disease as well with at least carotid duplex. Will follow up in the clinic in 6 weeks time, sooner p.r.n.. Thank you for allowing me to partake in his care Orders: Orders CA stress test Today I25.2 - Old myocardial infarction, R93.1 - Abnormal findings on diagnostic imaging of heart and coronary circulation NM cardiolite stress test 2 Weeks R07.9 - Chest pain, unspecified Coding Level of Care Code New Pt Level 4 (31885) Diagnoses Old HI (myocardial infarction) I25.2 CPT Codes EKG - CPT: 65524-[id number], Complete ([id number])
== END 2023-06-05 09:52 | disposition home or self-care (01) ==
PROVIDERS: PCP Nurse Practitioner Family; Visit Provider Internal Medicine Cardiovascular Disease
DX: I25.2 Old myocardial infarction (principal)
CPT/HCPCS: 93010; 99204

== ENCOUNTER → 2023-06-05 08:56 | Outpatient (BNVA) | payer MEDICARE, SELFPAY | PROVIDERS: PCP Nurse Practitioner Family; Visit Provider Internal Medicine Cardiovascular Disease | DX: I25.2 Old myocardial infarction (principal) | CPT/HCPCS: 93005; 99202 ==

== ENCOUNTER 2023-06-18 07:18 | Outpatient (AMB) | payer MEDICARE, SELFPAY ==
--- NOTE | 2023-06-18 07:34 | MHC.OFFVIS ---
Intake Vital Signs 06/18/23 07:36 BP 128/80 Blood Pressure Location Rt brachial Position Sitting Pulse 56 Pulse Source Pulse Oximeter Pulse Oximetry (%) 98 Oxygen Delivery Method Room Air Intake Visit Reasons: 4m f/up Convulsions/gait/mobility - Conf. Intake Note: Patient presents for 4 month follow up. Allergies No Known Allergies Allergy (Verified 06/18/23 07:35) Medication List - Last Reconciled 06/18/23 by Angelia Recinos MD amlodipine 5 mg PO DAILY aspirin (Ecotrin Low Strength) 81 mg PO DAILY atorvastatin 10 mg PO BEDTIME 90 days CPAP (CPAP Machine/Device) As directed gabapentin 600 mg PO BID lisinopril 40 mg PO DAILY [raised toilet seat daily use NS] HPI HPI Comments History of Present Illness Details 77y/o male comes for follow up of his sleep apnea and evaluation of shuffling gait. He did well on home PT . His C spine MRI showed multilevel spondylosis without high grade stenosis. There was an incidental 4mm lesion in the midbrain which need further evaluation He sees Dr. Stubbs and his last seizure was in Jan 2023 - his gabapenin was increased to 600mg bid . He stopped alcohol intake [facility] He also has h/o seizures ? alcohol related - followed up by Dr. Stubbs at [facility] Epilepsy clinic. He was diagnosed with sleep apnea in 2018 - started on CPAP.He was seen by Dr. Robles and has been on CPAP 10-14 since then. His home care company is [employer]. His 90 day compliance data shows 96% usage Daily usage hrs-9 pressure 10-14 AHI 6 Previous history 02/13/23-He has h/o heavy alcohol use . He started drinking heavily in 2018. He drinks 3-4 glasses of wine or more. He had his first seizure in 2019 - EEG showed a marker for partial seizures, MRI showed white matter changes.2 and 3rd seizure was 2020. Last seizure was last week- was admitted to [facility]- he was drinking 3-4 glasses of wine.He was told that his seizures were related to alcohol but Dr. Stubbs s notes imply an abnormal EEG and partial seizure. He does not drive He has h/o gait issues mainly related to his arthritis. 1 year ago he had a fall . He has neck stiffness and pain since then . He also has h/o urinary incontinence since 2020.He has urinary frequency urgency He denies radicular pain in his UE [facility] Medical History (Updated 06/18/23 @ 08:08 by Angelia Recinos MD) Disorder of midbrain Abnormal MRI, cervical spine Abnormal MRI of head Seizure disorder Obstructive sleep apnea Cervicalgia Seizures Elevated cholesterol HTN (hypertension) Dyslipidemia Sleep apnea Surgical History Hx of colonoscopy Family History Father HTN (hypertension) Mother No problems noted. Family/Other Stroke Cancer Breast cancer Social History Housing: House Alcohol intake: former Patient Tobacco Use Status: Never used Tobacco e-Cigarette/Vaping Use: Never Used Second Hand Smoke Exposure: No service: No Current occupational status: retired Cognitive needs: No Hearing needs: No Vision needs: No Physical Exam Vital Signs: Last Vital Signs Pulse 56 06/18/23 07:36 BP 128/80 06/18/23 07:36 Pulse Ox 98 06/18/23 07:36 Oxygen Delivery Method Room Air 06/18/23 07:36 Const General: cooperative, healthy appearing, comfortable and no acute distress Nutritional Appearance: average body habitus Orientation/consciousness: patient oriented x3 Eyes Pupils: Equal, round and reactive pupils present Neuro Other: neck- restricted range of motion gait- shorter steps, slow General: patient oriented x3, tone normal, moves all extremities and no focal motor deficits Cranial nerves: Yes Facial sensation intact/muscles of mastication intact, Yes Equal, round and reactive pupils present, Yes Bilaterally intact EOM present, Yes Nystagmus not present, Yes Normal facial strength present, Yes Midline tongue present and Yes Symmetric palate elevation present Cognition (Neuro): normal cognition Motor exam (neuro): 5/5 motor strength present throughout and Normal motor muscle tone present throughout Coordination: [id number] test normal Assessment & Plan Assessment & Plan (1) Obstructive sleep apnea: Code(s): G47.33 - Obstructive sleep apnea (adult) (pediatric) (2) Cervicalgia: Comment: with shuffling urinary incontinence, ? cervical myelopathy Code(s): M54.2 - Cervicalgia (3) Seizure disorder: Comment: last seizure 01/2023 Code(s): G40.909 - Epilepsy, unspecified, not intractable, without status epilepticus Plan Contact [employer] for new supplies Compliance stressed with CPAP MRI Brain to evaluate the midbrain lesion continue gabapentin and f/u with Dr. Stubbs Orders: Orders MR head/brain wo/w con 06/18/23 G93.9 - Disorder of brain, unspecified Coding Level of Care Code Est Pt Level 4 (05681) Diagnoses Obstructive sleep apnea G47.33 Cervicalgia M54.2 Seizure disorder G40.909
[2023-06-18 07:36] VITALS: BP 128/80; PULSE 56; O2SAT 98
== END 2023-06-18 08:13 | disposition home or self-care (01) ==
PROVIDERS: PCP Nurse Practitioner Family; Visit Provider Psychiatry & Neurology Neurology
DX: G47.33 Obstructive sleep apnea (adult) (pediatric) (principal); M54.2 Cervicalgia; G40.909 Epilepsy, unspecified, not intractable, without status epilepticus
CPT/HCPCS: 99214

== ENCOUNTER → 2023-06-18 07:18 | Outpatient (BNVA) | payer MEDICARE, SELFPAY | PROVIDERS: PCP Nurse Practitioner Family; Visit Provider Psychiatry & Neurology Neurology | DX: G40.909 Epilepsy, unspecified, not intractable, without status epilepticus (principal); M54.2 Cervicalgia; G47.33 Obstructive sleep apnea (adult) (pediatric) | CPT/HCPCS: 99212 ==

== ENCOUNTER → 2023-06-21 09:57 | Outpatient (REF) | payer MEDICARE, SELFPAY ==
--- NOTE | ~2023-06-21 | NM_ITS ---
EXERCISE MYOCARDIAL PERFUSION STUDY INDICATION: Chest pain, assess for coronary disease and ischemia TECHNIQUE: The patient was brought in for an exercise perfusion study on 06/21/2023. Patient performed exercise as per Dez protocol and was injected 30 mCi of sestamibi once target heart rate was achieved. Images were obtained using the SPECT gamma camera interlaced with the gating device. Images were obtained in supine position. Resting perfusion study was performed on 06/26/2023. Patient was administered 30 mCi of sestamibi intravenously at rest. Images were then obtained in supine position. Images were processed with the software and compared side to side in short axis, horizontal long axis and vertical long axis views. Total DLP 173mGy-cm. FINDINGS: Raw images were reviewed. Arms by the patient's side. The stress perfusion study showed diminished tracer uptake in the basal infero- lateral wall but otherwise unremarkable. There is improvement with CT attenuation correction which could indicate diaphragmatic attenuation artifact. The gated study shows normal LV systolic function with calculated LVEF of 58%. LV cavity is normal in size. The gated study shows normal wall thickening and contraction of segments. Resting study shows no significant perfusion abnormality. Gating at rest reveals normal wall motion with ejection fraction at 68%. The findings are consistent with possible reversible basal infero- lateral defect. Could be artifactual. NM/NM cardiolite stress test IMPRESSION: 1. Myocardial perfusion imaging study shows possible ischemia in a small area in the basal infero- lateral wall. Could also be artifactual. 2. Gated LVEF is 58% during stress and 68% during rest. 3. Transient ischemic dilatation not present. EKG component of the test reported separately.
--- NOTE | 2023-06-21 09:59 | CA_ITS ---
Acquisition Time: 2023-06-21 09:55:28 Total Exercise Time: 00:04:33 Test Indications: Chest Pain Medications: AMLODIPINE ATORVASTATIN GABAPENTIN LISINOPRIL Protocol: IZAIAH Max HR: 146 BPM 100% of Pred: 145 BPM Max BP: 182/078 mmHG Max Work Load: 5.2 METS Exercise stress test exercise 4 min 33 sec of Izaiah protocol (speed stage 1 increased incline after 3 mins) with continued marching in place for 30-45 sec tomainatin elevated heart rate achieving 86% MPHR, treadmill stopped due to safety on the treadmill, without anginal symptoms, with isloated PVCs ventricular bigeminy and one ventricular cuplet, without EKG changes. Nuclear images pending. Test reviewed with Dr. Riley. Referred By: Jose Riley Overread By: Mariia Eller
== END ==
LOC: HO.CARD 09:57
PROVIDERS: PCP Nurse Practitioner Family; Visit Provider Internal Medicine Cardiovascular Disease
DX: R07.9 Chest pain, unspecified (principal); I25.2 Old myocardial infarction; R93.1 Abnormal findings on diagnostic imaging of heart and coronary circulation
CPT/HCPCS: 78452; 93017; A9500

== ENCOUNTER → 2023-06-21 09:59 | Outpatient (BNV) | payer MEDICARE, SELFPAY | PROVIDERS: PCP Nurse Practitioner Family; Visit Provider Nurse Practitioner | DX: R07.9 Chest pain, unspecified (principal); I25.2 Old myocardial infarction | CPT/HCPCS: 78452; 93016; 93018 ==

== ENCOUNTER 2023-07-17 07:58 | Outpatient (AMB) | payer MEDICARE, SELFPAY ==
[2023-07-17 08:17] VITALS: BP 130/72; PULSE 51; BMI 31.3
--- NOTE | 2023-07-17 08:17 | A.OFFVIS_ITS ---
Intake Vital Signs 07/17/23 08:17 Height 5 ft 9 in Weight 212 lb 1.355 oz BMI 31.3 BP 130/72 Blood Pressure Location Lt brachial Position Sitting Pulse 51 Pulse Source Pulse Oximeter Intake Visit Reasons: 6 wk f/up mibi NS Allergies No Known Allergies Allergy (Verified 07/17/23 08:19) Medication List - Last Reconciled 07/17/23 by Jewels Brock, RETAIL PLANNING MANAGER-C amlodipine 5 mg PO DAILY aspirin (Ecotrin Low Strength) 81 mg PO DAILY atorvastatin 10 mg PO BEDTIME 90 days CPAP (CPAP Machine/Device) As directed gabapentin 600 mg PO BID lisinopril 40 mg PO DAILY [raised toilet seat daily use NS] HPI 6 wk f/up mibi NS HPI Details Naresh is a 77-year-old male past medical history of hypertension, hyperlipidemia, sleep apnea with CPAP use who was seen at [facility] last summer for seizure and had an echocardiogram showing basal inferior hypokinesis. He was referred to Cardiology in follow-up. On last visit a nuclear stress test was ordered and he now presents for follow-up. Today he reports that he feels well with no chest discomfort at rest or with activity. He denies any shortness of breath, heart palpitations, lightheadedness, presyncope, syncope, PND, orthopnea or edema. He admits to being mostly sedentary. He has bilateral knee arthritis which limits his physical activity. He takes meds as directed. His is present. REPLACED BY [facility] Medical History Disorder of midbrain Abnormal MRI, cervical spine Abnormal MRI of head Seizure disorder Obstructive sleep apnea Cervicalgia Seizures Elevated cholesterol HTN (hypertension) Dyslipidemia Sleep apnea Surgical History Hx of colonoscopy Family History Father HTN (hypertension) Mother No problems noted. Family/Other Stroke Cancer Breast cancer Social History Housing: House Alcohol intake: former Patient Tobacco Use Status: Never used Tobacco e-Cigarette/Vaping Use: Never Used Second Hand Smoke Exposure: No service: No Current occupational status: retired Cognitive needs: No Hearing needs: No Vision needs: No Review of Systems Const All systems reviewed & are unremarkable except as noted in HPI and below ENT Denies dizziness Card Denies chest pain, Denies chest pain at rest, Denies chest pain with activity, Denies rapid heart rate, Denies pedal edema, Denies edema, Denies leg edema, Denies lightheadedness, Denies palpitations, Denies dyspnea, Denies dyspnea on exertion and Denies orthopnea Resp Denies cough, Denies dyspnea and Denies dyspnea on exertion GI Denies hematochezia and Denies change in stool character Musc Details: bilateral knee arthritis Denies abnormal gait, Reports limited range of motion, Denies muscle cramps, Denies muscle weakness, Denies numbness, Denies radiating pain into limb, Denies stiffness and Denies tingling Neuro Denies abnormal gait, Denies dizziness, Denies numbness and Denies tingling Endo Denies palpitations Physical Exam Vital Signs: Last Vital Signs Pulse 51 07/17/23 08:17 BP 130/72 07/17/23 08:17 BMI result Body Mass Index 31.3 Const General: cooperative, healthy appearing, comfortable and no acute distress Orientation/consciousness: patient oriented x3 Neck Neck: Yes normal visual inspection Resp Effort & Inspection: normal respiratory effort Auscultation: clear to auscultation bilaterally, no crackles, no rales, no rhonchi and no wheezes Cardio Jugular venous distension: no JVD Rate: regular rate Rhythm: regular rhythm Heart sounds: S1 normal heart sound present, S2 normal heart sound present, no m urmurs and no rubs Neuro General: patient oriented x3 Extrem General: Yes normal to inspection, No no pedal edema and No calf tenderness Psych Appearance: grossly normal Mental Status: mental status grossly normal Speech and movement: Normal speech and movement present Assessment & Plan Assessment & Plan (1) Abnormal echocardiogram: Code(s): R93.1 - Abnormal findings on diagnostic imaging of heart and coronary circulation Plan: Echocardiogram done at [facility] 01/2023 with normal EF, basal inferior hypokinesis. He had no known history of CAD, prior [place]. no cardiac symptoms. EKG done on last visit 06/05/2023 shows normal sinus rhythm, left axis deviation, right bundle branch block, voltage meeting criteria for LVH, rate 66. An exercise nuclear stress test was done on 06/21/2023 showing exercise 4 minutes 33 seconds, no EKG changes of ischemia, nuclear imaging with possible small area of ischemia in the basal inferior inferior lateral wall. Test results reviewed with him and in detail. Continues to have no anginal symptoms. Will order a CTA of the coronary arteries for further evaluation. Will check BMP prior. Diagnosis of possible CAD reviewed with him. Will have him continue on aspirin. Continue atorvastatin however I will increase his dose up to 20 mg daily. Labs done on 05/16/2023 had shown LDL 125. Signs and symptoms of angina reviewed. Activity as tolerated. Cardiology follow-up when CTA results are available. Emergency care if ever needed for symptoms (2) Abnormal nuclear stress test: Code(s): R94.39 - Abnormal result of other cardiovascular function study Plan: As above (3) HTN (hypertension): Code(s): I10 - Essential (primary) hypertension Plan: Well controlled at present time. Home blood pressures typically in normal range however has been as low as 90s systolic. He increase his fluid when that occurs. Labs done 05/16/2023 had shown creatinine 0.96. Will have him continue on lisinopril 40 mg daily and amlodipine. (4) Sleep apnea: Comment: Well controlled follows with pcp Code(s): G47.30 - Sleep apnea, unspecified Plan: Compliant with CPAP (5) Dyslipidemia: Code(s): E78.5 - Hyperlipidemia, unspecified Plan: Randolph LDL goal less than 100 at present. If diagnosed with CAD than ideal LDL goal will be less than 70. Increasing atorvastatin as above Plan Time spent on chart review, documentation, interview and assessment Orders: Orders CT Cardiac Coronary Angio Today R93.1 - Abnormal findings on diagnostic imaging of heart and coronary circulation, R94.39 - Abnormal result of other cardiovascular function study Basic Metabolic Panel Today R94.39 - Abnormal result of other cardiovascular function study Medications: New atorvastatin 20 mg PO BEDTIME 90 tabs 3RF Discontinued atorvastatin Discontinued Reason: Doctor's Order 10 mg PO BEDTIME 90 tabs 1RF 90 days Coding Level of Care Code Est Pt Level 3 (01241) Diagnoses Abnormal echocardiogram R93.1 Abnormal nuclear stress test R94.39 HTN (hypertension) I10 Sleep apnea G47.30 Dyslipidemia E78.5 Time Spent (min) 24
== END 2023-07-17 08:55 | disposition home or self-care (01) ==
PROVIDERS: PCP Nurse Practitioner Family; Visit Provider Nurse Practitioner Family
DX: R93.1 Abnormal findings on diagnostic imaging of heart and coronary circulation (principal); R94.39 Abnormal result of other cardiovascular function study; I10 Essential (primary) hypertension; G47.30 Sleep apnea, unspecified; E78.5 Hyperlipidemia, unspecified
CPT/HCPCS: 99213

== ENCOUNTER → 2023-07-17 07:58 | Outpatient (BNVA) | payer MEDICARE, SELFPAY | PROVIDERS: PCP Nurse Practitioner Family; Visit Provider Nurse Practitioner Family | DX: R93.1 Abnormal findings on diagnostic imaging of heart and coronary circulation (principal); R94.39 Abnormal result of other cardiovascular function study; I10 Essential (primary) hypertension; G47.30 Sleep apnea, unspecified; E78.5 Hyperlipidemia, unspecified; Z79.82 Long term (current) use of aspirin; Z79.899 Other long term (current) drug therapy | CPT/HCPCS: 99212 ==

== ENCOUNTER 2023-09-17 09:39 | Outpatient (REF) | payer MEDICARE, SELFPAY ==
--- NOTE | ~2023-09-17 | MR_ITS ---
EXAMINATION: MR BRAIN WITHOUT AND WITH CONTRAST CLINICAL INFORMATION: Midbrain lesion. COMPARISON: Cervical spine MRI from 05/10/2023. TECHNIQUE: MRI of the brain was obtained using routine sequences without and following the administration of 10 mL of Gadavist intravenous contrast. FINDINGS: No focal restricted diffusion is demonstrated to suggest acute or subacute cerebral ischemia. No evidence of acute or chronic hemorrhagic products on heme-sensitive imaging. Chronic lacunar infarcts of the bilateral centrum semiovale/truong radiata white matter, right lentiform nucleus, bilateral thalami, and bilateral cerebellar hemispheres. Scattered and partially confluent periventricular, deep white matter, and brainstem T2 FLAIR hyperintensities consistent with moderate underlying microangiopathy. Proportional prominence of the ventricles and sulcal spaces without evidence of obstructive hydrocephalus. The previously noted rounded structure in the dorsal midbrain is not as conspicuous on dedicated MRI of the head when compared to recent MRI of the cervical spine. No abnormal enhancement in this distribution. No abnormal mass effect. No midline shift. Normal appearance of the pituitary gland. Normal positioning of the cerebellar tonsils. Normal arterial and venous vascular flow voids are present. No abnormal contrast enhancement. Normal, homogeneous marrow signal. Mild mucosal thickening of the paranasal sinuses. No signal abnormalities within the mastoids. MR/MR head/brain wo/w con IMPRESSION: 1. No acute intracranial abnormalities. No abnormal intracranial enhancement. 2. Moderate underlying microangiopathy and generalized cerebral volume loss. Chronic lacunar infarcts of the deep nuclei and cerebellum. 3. The previously noted rounded structure in the dorsal midbrain is not as conspicuous on dedicated MRI of the head when compared to recent MRI of the cervical spine. No abnormal enhancement in this distribution.
[2023-09-17] MEDS: gadobutroL 10 ML VIAL IVPUSH (10:25)
== END 2023-09-17 09:40 | disposition home or self-care (01) ==
LOC: HO.MRI 09:39
PROVIDERS: PCP Nurse Practitioner Family; Visit Provider Psychiatry & Neurology Neurology
DX: R93.0 Abnormal findings on diagnostic imaging of skull and head, not elsewhere classified (principal)
CPT/HCPCS: 70553; A9585

== ENCOUNTER 2023-11-29 13:53 | Outpatient (AMB) | payer MEDICARE, SELFPAY ==
--- NOTE | 2023-11-29 13:55 | MHC.OFFVIS ---
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 Required: No Manager Operations Research: Manager Operations Research Present Allergies No Known Allergies Allergy (Verified 11/29/23 13:58) Medication List - Last Reconciled 11/29/23 by Jewels Brock NP-C amlodipine 5 mg PO DAILY aspirin (Ecotrin Low Strength) 81 mg PO DAILY atorvastatin 20 mg PO BEDTIME CPAP (CPAP Machine/Device) As directed gabapentin 600 mg PO BID lisinopril 40 mg PO DAILY [raised toilet seat daily use NS] HPI HPI f/u after CTA: Details: Naresh is a 78-year-old male past medical history of hypertension, hyperlipidemia, sleep apnea with CPAP use who was seen at [facility] last summer for seizure and had an echocardiogram showing basal inferior hypokinesis. More recently He was referred to Cardiology in follow-up. His nuclear stress test was abnormal and he underwent a CTA of the coronaries and now presents for follow-up. Today he reports that he feels well with no chest discomfort at rest or with activity. He denies any shortness of breath, heart palpitations, lightheadedness, presyncope, syncope, PND, orthopnea or edema. He admits to being mostly sedentary. He has bilateral knee arthritis which limits his physical activity. He takes meds as directed. His is present. [facility] Medical History Disorder of midbrain Abnormal MRI, cervical spine Abnormal MRI of head Seizure disorder Obstructive sleep apnea Cervicalgia Seizures Elevated cholesterol HTN (hypertension) Dyslipidemia Sleep apnea Surgical History Hx of colonoscopy Family History Father HTN (hypertension) Mother No problems noted. Family/Other Stroke Cancer Breast cancer Social History Housing: House Alcohol intake: former Patient Tobacco Use Status: Never used Tobacco e-Cigarette/Vaping Use: Never Used Second Hand Smoke Exposure: No service: No Current occupational status: retired Cognitive needs: No Hearing needs: No Vision needs: No Review of Systems Const All systems reviewed & are unremarkable except as noted in HPI and below ENT Reports dizziness and Denies mouth lesions Card Denies chest pain, Denies chest pain at rest, Denies chest pain with activity, Denies rapid heart rate, Denies pedal edema, Denies edema, Denies leg edema, Denies lightheadedness, Denies palpitations, Denies dyspnea, Denies dyspnea on exertion and Denies orthopnea Resp Denies cough, Denies dyspnea and Denies dyspnea on exertion GI Denies hematochezia and Denies change in stool character Musc Denies abnormal gait, Denies limited range of motion, Denies muscle cramps, Denies muscle weakness, Denies numbness, Denies radiating pain into limb, Denies stiffness and Denies tingling Neuro Denies abnormal gait, Reports dizziness, Denies numbness and Denies tingling Endo Denies palpitations Physical Exam Vital Signs: Last Vital Signs Pulse 57 11/29/23 13:56 BP 124/72 11/29/23 13:56 BMI result Body Mass Index 30.4 Const General: cooperative, healthy appearing, comfortable and no acute distress Orientation/consciousness: patient oriented x3 Neck Neck: Yes normal visual inspection and Yes no JVD Carotids: normal carotid upstroke Resp Effort & Inspection: normal respiratory effort Auscultation: clear to auscultation bilaterally, no rales, no rhonchi and no wheezes Cardio Jugular venous distension: no JVD Rate: regular rate Rhythm: regular rhythm Heart sounds: S1 normal heart sound present, S2 normal heart sound present, no murmurs and no rubs Neuro General: patient oriented x3 Extrem General: Yes normal to inspection and No no pedal edema Psych Appearance: grossly normal Mental Status: mental status grossly normal Speech and movement: Normal speech and movement present Assessment & Plan Assessment & Plan (1) Abnormal echocardiogram: Code(s): R93.1 - Abnormal findings on diagnostic imaging of heart and coronary circulation Category: Medical Plan: Echocardiogram done at [facility] 01/2023 with normal EF, basal inferior hypokinesis. He had no known history of CAD, prior [place]. he has no cardiac symptoms. EKG done on last visit 06/05/2023 shows normal sinus rhythm, left axis deviation, right bundle branch block, voltage meeting criteria for LVH, rate 66. An exercise nuclear stress test was done on 06/21/2023 showing exercise 4 minutes 33 seconds, no EKG changes of ischemia, nuclear imaging with possible small area of ischemia in the basal inferior inferior lateral wall. He then underwent a CTA of the coronary arteries on 11/01/2023 showing noncalcified plaque causing severe stenosis of the mid to distal 1st OM, noncalcified plaque causing moderate stenosis of the mid RCA, calcified plaque causing minimal stenosis of the LAD and its branches as well as less circumflex. Reviewed this with him in detail. He denies any anginal sounding symptoms. His activity is limited by knee pain. At this time in the absence of symptoms will continue with med management. Continue aspirin indefinitely. Currently on atorvastatin 20 mg daily which he is tolerating. Will increase atorvastatin up to 40 mg daily. [place] LDL goal less than 70. Fasting lipid profile due 01/31/2024, patient informed. Will continue on amlodipine which can be used as an antianginal agent. Is not on beta-dre as his resting heart rate is in the 50s. Signs and symptoms of angina reviewed with him in detail. Emergency care if needed for symptoms. Call this office if any changes in condition. Cardiology follow-up 3 months, sooner if needed. He may eventually need cardiac catheterization for further evaluation. This was discussed with him. (2) Abnormal nuclear stress test: Code(s): R94.39 - Abnormal result of other cardiovascular function study Category: Medical Plan: As above (3) HTN (hypertension): Code(s): I10 - Essential (primary) hypertension Category: Medical Plan: Well controlled at present time. Labs done 05/16/2023 had shown creatinine 0.96. Will have him continue on lisinopril 40 mg daily and amlodipine. (4) Sleep apnea: Comment: Well controlled follows with pcp Code(s): G47.30 - Sleep apnea, unspecified Category: Medical Plan: Compliant with CPAP (5) Dyslipidemia: Code(s): E78.5 - Hyperlipidemia, unspecified Category: Medical Plan: [place] LDL goal less than 70 at present. Increasing atorvastatin to 40 mg daily. Fasting lipid and LFT planned for 01/31/2024. (6) CAD (coronary artery disease): Code(s): I25.10 - Atherosclerotic heart disease of [place] coronary artery without angina pectoris Category: Medical Plan: As above Plan Time spent on chart review, documentation, interview and assessment Orders: Orders Lipid Panel 2 Months I25.10 - Atherosclerotic heart disease of [place] coronary artery without angina pectoris, R94.39 - Abnormal result of other cardiovascular function study Comprehensive Met. Panel 2 Months R94.39 - Abnormal result of other cardiovascular function study Medications: New atorvastatin 40 mg PO BEDTIME 30 tabs 5RF Discontinued atorvastatin Discontinued Reason: Doctor's Order 20 mg PO BEDTIME 90 tabs 3RF Coding Level of Care Code Est Pt Level 4 (98526) Diagnoses Abnormal echocardiogram R93.1 Abnormal nuclear stress test R94.39 HTN (hypertension) I10 Sleep apnea G47.30 Dyslipidemia E78.5 CAD (coronary artery disease) I25.10 Time Spent (min) 30
[2023-11-29 13:56] VITALS: BP 124/72; PULSE 57; BMI 30.4
== END 2023-11-29 14:54 | disposition home or self-care (01) ==
PROVIDERS: PCP Nurse Practitioner Family; Visit Provider Nurse Practitioner Family
DX: R93.1 Abnormal findings on diagnostic imaging of heart and coronary circulation (principal); R94.39 Abnormal result of other cardiovascular function study; I10 Essential (primary) hypertension; G47.30 Sleep apnea, unspecified; E78.5 Hyperlipidemia, unspecified; I25.10 Atherosclerotic heart disease of native coronary artery without angina pectoris
CPT/HCPCS: 99214

== ENCOUNTER → 2023-11-29 13:53 | Outpatient (BNVA) | payer MEDICARE, SELFPAY | PROVIDERS: PCP Nurse Practitioner Family; Visit Provider Nurse Practitioner Family | DX: I25.10 Atherosclerotic heart disease of native coronary artery without angina pectoris (principal); I10 Essential (primary) hypertension; R93.1 Abnormal findings on diagnostic imaging of heart and coronary circulation; R94.39 Abnormal result of other cardiovascular function study; G47.30 Sleep apnea, unspecified; E78.5 Hyperlipidemia, unspecified | CPT/HCPCS: 99212 ==

== ENCOUNTER 2024-01-31 09:47 | Outpatient (AMB) | payer MEDICARE, SELFPAY ==
--- NOTE | 2024-01-31 10:04 | A.OFFPC_ITS ---
Vital Signs 01/31/24 10:06 Height 5 ft 9 in Weight 211 lb BMI 31.2 BP 136/84 Blood Pressure Location Lt brachial Position Sitting Pulse 62 Pulse Source Pulse Oximeter Pulse Oximetry (%) 95 Oxygen Delivery Method Room Air Intake Visit Reasons: Medication review Intake Note: Patient here for med review. pt would like to talk about bilat arthritis in knees and is becoming to have difficulty with daily activities. Allergies No Known Allergies Allergy (Verified 01/31/24 10:36) Medication List - Last Reconciled 01/31/24 by MARQUISE Agustin aspirin (Ecotrin Low Strength) 81 mg PO DAILY atorvastatin 40 mg PO BEDTIME CPAP (CPAP Machine/Device) As directed gabapentin 600 mg PO BID levetiracetam 500 mg PO lisinopril 40 mg PO DAILY [raised toilet seat daily use NS] Tobacco use date assessed: 01/31/24 Fall risk assessment: No Falls in past year Last assessed Fall Risk: 01/31/24 Dental Screening Dental Screen Date: 01/31/24 Did you have a dental visit in the last 12 months?: No Did you have a dental problem in the last 6 months where you did not have access to dental care?: No Was dental information given to patient?: Patient has dentist HPI Medication review HPI Details Pt c/o bilat knee pain. He reports popping and clicking to his knees. Pt reports that the pain is affecting his daily life and is worse when standing up. He has tried braces which did not help. Will repeat XRs. Last XRs were in November of 2021 which did show arthritis. Denies fever, chills, and dizziness. [facility] Medical History Disorder of midbrain Abnormal MRI, cervical spine Abnormal MRI of head Seizure disorder Obstructive sleep apnea Cervicalgia Seizures Elevated cholesterol HTN (hypertension) Dyslipidemia Sleep apnea Surgical History Hx of colonoscopy Family History Father HTN (hypertension) Mother No problems noted. Family/Other Stroke Cancer Breast cancer Social History Housing: House Alcohol intake: former Patient Tobacco Use Status: Never used Tobacco e-Cigarette/Vaping Use: Never Used Second Hand Smoke Exposure: No service: No Current occupational status: retired Cognitive needs: No Hearing needs: No Vision needs: No Questionnaire PHQ-9 Over the last 2 weeks, how often have you been bothered by any of the following problems? 1. Little interest or pleasure in doing things: nearly every day 2. Feeling down, depressed, or hopeless: not at all 3. Trouble falling or staying asleep, or sleeping too much: not at all 4. Feeling tired or having little energy: not at all 5. Poor appetite or overeating: not at all 6. Feeling bad about yourself - or that you are a failure or have let yourself or your family down: not at all 7. Trouble concentrating on things, such as reading the newspaper or watching television: not at all 8. Moving or speaking so slowly that other people could have noticed. Or the opposite - being so fidgety or restless that you have been moving around a lot more than usual: not at all 9. Thoughts that you would be better off or of hurting yourself in some way: not at all Total score: 3 Depression Screening Interpretation: Negative Depression Screening Done: Yes 46923 - PHQ-9 Billing: Yes Source: Developed by Drs. See Elder, Elena Jorge, Keith Calvillo and colleagues, with an educational kell from [employer]. Thrive Questionnaire Date Thrive assessed: 05/23/22 I am a: Parent/Caregiver What is your living situation today?: I have a steady place to live Within the past 12 months, did the food you bought not last and you didn't have the money to get more?: Never true Within the past 12 months, did you worry whether your food would run out before you got money to buy more?: Never true Do you have trouble paying for medicines?: No Do you have trouble getting transportation to medical appointments?: No Do you have trouble paying your heating and electricity bill?: No Do you have trouble taking care of your child, family member or friend?: No Do you have trouble with day-to-day activities such as bathing, preparing meals, shopping, managing finances, etc.?: No Are you currently unemployed and looking for a job?: Yes Are you interested in more education?: No Please select the resources that you would like help with: Housing/Fdc Currently or been in a relationship where the following occur: No concerns reported THRIVE Score: 0 AUDIT C Alcohol Use Questionnaire (AUDIT-C) 1. How often do you have a drink containing alcohol?: Never Total Score: 0 MOSES-7 AMB Questionnaire MOSES-7 Date MOSES - 7 assessed: 05/23/22 Feeling nervous, anxious, or on edge: 0 = Not at all Not being able to stop or control worryin = Not at all Worrying too much about different things: 0 = Not at all Trouble relaxin = Not at all Being so restless that it is hard to sit still: 0 = Not at all Becoming easily annoyed or irritable: 0 = Not at all Feeling afraid as if something awful might happen: 0 = Not at all Total MOSES-7 score (0-4 normal; 5-9 mild; 10-14 moderate; 15-21 severe): 0 Source: Developed by Drs. See Elder, Elena Jorge, Keith Calvillo and colleagues, with an educational kell from [employer]. MOSES-7 Assessment Billing MOSES-7 Assessment Tool: MOSES-7 Assessment 66320 Review of Systems Const Reports as per HPI Physical exam (Primary Care) Vital Signs: Last Vital Signs Pulse 62 01/31/24 10:06 BP 136/84 01/31/24 10:06 Pulse Ox 95 01/31/24 10:06 Oxygen Delivery Method Room Air 01/31/24 10:06 BMI result Body Mass Index 31.2 Tobacco/Smoking Status: Tobacco use Status Tobacco use date assessed 01/31/24 01/31/24 10:13 Patient Tobacco Use Status Never used Tobacco 01/31/24 10:06 e-Cigarette/Vaping Use Never Used 01/31/24 10:06 PHQ-9: PHQ-9 Score PHQ-9: Total score 3 01/31/24 10:35 Depression Screening Interpretation: Negative Thrive Assessment: Date of Thrive Assessment Date Thrive assessed 05/23/22 01/31/24 10:06 Currently or been in a relationship where the following occur: No concerns reported Const General: cooperative Nutritional Appearance: obese Orientation/consciousness: patient oriented x3 Resp Effort & Inspection: normal respiratory effort Auscultation: clear to auscultation bilaterally Cardio Rate: regular rate Rhythm: regular rhythm Heart sounds: S1 normal heart sound present and S2 normal heart sound present Neuro General: patient oriented x3 Extrem Other: crepitus to bilat knees with extension and flexion, - mcmurrays, - lachmans, swelling noted to bilat knees Right lower extremity: edema Details: pitting and 1+ Left lower extremity: edema Details: pitting and 1+ Psych Appearance: grossly normal Mental Status: mental status grossly normal Affect: normal affect Attitude: cooperative Thought process: Normal thought process present Thought content: Normal thought content present Insight: Good insight present (Psych) Judgement: Good judgement present (Psych) Assessment and Plan Assessment & Plan (1) Bilateral knee pain: Code(s): M25.561 - Pain in right knee; M25.562 - Pain in left knee Plan: XRs ordered (2) Screening PSA (prostate specific antigen): Code(s): Z12.5 - Encounter for screening for malignant neoplasm of prostate Plan: PSA ordered Plan The patient agreed to the use of a outside medical sales representative for this encounter. Scribed for MADHAVI Choi- by Alma Dhillon outside medical sales representative, on 01/31/2024 at 10:35 EST. Orders: Orders XR knee RT 2V Today M25.561 - Pain in right knee, M25.562 - Pain in left knee Prostate Specific Antigen Scr Today Z12.5 - Encounter for screening for malignant neoplasm of prostate XR knee LT 2V Today M25.561 - Pain in right knee, M25.562 - Pain in left knee Medications: Refilled lisinopril 40 mg PO DAILY 90 tabs 1RF Coding Level of Care Code Est Pt Level 3 (48957) Diagnoses Bilateral knee pain M25.561; M25.562 Screening PSA (prostate specific antigen) Z12.5 Additional Codes MOSES-7 Assessment Billing - MOSES-7 Assessment Tool: MOSES-7 Assessment 25248 ([id number])
[2024-01-31 10:06] VITALS: BP 136/84; PULSE 62; O2SAT 95; BMI 31.2
== END 2024-01-31 10:47 | disposition home or self-care (01) ==
PROVIDERS: PCP Nurse Practitioner Family; Visit Provider Nurse Practitioner Family
DX: M25.561 Pain in right knee (principal); M25.562 Pain in left knee; Z12.5 Encounter for screening for malignant neoplasm of prostate
CPT/HCPCS: 99213

== ENCOUNTER 2024-01-31 10:48 | Outpatient (REF) | payer MEDICARE, SELFPAY ==
--- NOTE | ~2024-01-31 | XR_ITS ---
EXAMINATION: XR BILATERAL KNEES CLINICAL INFORMATION: Pain bilateral knees. COMPARISON: 12/20/2021. TECHNIQUE: Frontal and lateral views of each knee. FINDINGS: RIGHT KNEE: Mild degenerative changes in the medial compartment with tiny medial marginal osteophytes. Moderate degenerative changes with hypertrophic change in the patellofemoral compartment. No significant joint effusion. Calcifications in the posterior soft tissues, possibly vascular. Diffuse demineralization. LEFT KNEE: Mild degenerative changes in the medial compartment with tiny medial marginal osteophytes. Moderate degenerative changes with hypertrophic change in the patellofemoral compartment. No significant joint effusion. Calcifications in the posterior soft tissues, possibly vascular. Diffuse demineralization. XR/XR knee RT 2V IMPRESSION: Moderate degenerative changes bilateral knees.
--- NOTE | ~2024-01-31 | XR_ITS ---
EXAMINATION: XR BILATERAL KNEES CLINICAL INFORMATION: Pain bilateral knees. COMPARISON: 12/20/2021. TECHNIQUE: Frontal and lateral views of each knee. FINDINGS: RIGHT KNEE: Mild degenerative changes in the medial compartment with tiny medial marginal osteophytes. Moderate degenerative changes with hypertrophic change in the patellofemoral compartment. No significant joint effusion. Calcifications in the posterior soft tissues, possibly vascular. Diffuse demineralization. LEFT KNEE: Mild degenerative changes in the medial compartment with tiny medial marginal osteophytes. Moderate degenerative changes with hypertrophic change in the patellofemoral compartment. No significant joint effusion. Calcifications in the posterior soft tissues, possibly vascular. Diffuse demineralization. XR/XR knee LT 2V IMPRESSION: Moderate degenerative changes bilateral knees.
== END 2024-01-31 10:49 | disposition home or self-care (01) ==
LOC: HO.HMGCX 10:48
PROVIDERS: PCP Nurse Practitioner Family; Visit Provider Nurse Practitioner Family
DX: M25.561 Pain in right knee (principal); M25.562 Pain in left knee
CPT/HCPCS: 73560

== ENCOUNTER 2024-02-07 08:50 | Outpatient (REF) | payer MEDICARE, SELFPAY ==
[2024-02-07 11:05] LABS: Alanine Aminotransferase 27 U/L (0-40); Albumin Level 4.1 g/dL (3.5-5.0); Alkaline Phosphatase 58 U/L (39-117); Anion Gap 11 (12-20); Aspartate Amino Transferase 25 U/L (5-37); Bilirubin Total 0.8 mg/dL (0.0-1.0); Blood Urea Nitrogen 15 mg/dL (9-16); Calcium 9.4 mg/dL (8.4-10.2); Carbon Dioxide 28 mmol/L (22-29); Chloride 108 mmol/L (96-108); Cholesterol 140 mg/dL (<200); Estimated Glomerular Filt Rate > 60; Glucose Random 94 mg/dL (60-115); HDL Cholesterol 51 mg/dL (>40); LDL Cholesterol Calculated 78 mg/dL (<100); Potassium 5.3 mmol/L (3.3-5.1); Sodium 142 mmol/L (135-145); Total Protein 7.6 g/dL (6.5-8.0); Triglycerides 56 mg/dL (<150)
[2024-02-07 11:20] LABS: Prostate Specific Antigen Scr 2.46 ng/mL (<0.05-4.0)
== END 2024-02-07 08:51 | disposition home or self-care (01) ==
LOC: HO.HMGCLDS 08:50
PROVIDERS: PCP Nurse Practitioner Family; Referring Provider Nurse Practitioner Family; Visit Provider Nurse Practitioner Family
DX: R94.39 Abnormal result of other cardiovascular function study (principal); I25.10 Atherosclerotic heart disease of native coronary artery without angina pectoris; Z12.5 Encounter for screening for malignant neoplasm of prostate
CPT/HCPCS: 36415; 80053; 80061; 84153

== ENCOUNTER 2024-03-10 08:56 | Outpatient (AMB) | payer MEDICARE, SELFPAY ==
[2024-03-10 09:15] VITALS: BP 140/82; PULSE 62; BMI 30.9
--- NOTE | 2024-03-10 09:15 | MHC.OFFVIS ---
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 Upholstering Required: No Line Person: Line Person Present Allergies No Known Allergies Allergy (Verified 03/10/24 09:17) Medication List - Last Reconciled 03/10/24 by Jewels Brock NP-C aspirin (Ecotrin Low Strength) 81 mg PO DAILY atorvastatin 40 mg PO BEDTIME CPAP (CPAP Machine/Device) As directed gabapentin 600 mg PO BID levetiracetam 500 mg PO lisinopril 40 mg PO DAILY [raised toilet seat daily use NS] HPI HPI 3m follow up: Details: Naresh is a 78-year-old male past medical history of hypertension, hyperlipidemia, sleep apnea with CPAP use who was seen at [facility] last summer for seizure and had an echocardiogram showing basal inferior hypokinesis. Last June He was referred to Cardiology in follow-up. His nuclear stress test was abnormal and he underwent a CTA of the coronaries showing severe stenosis of the mid to distal OM, moderate stenosis of the mid RCA and minimal stenosis of the LAD. In the absence of symptoms he was treated medically and he now presents for follow-up. Today he reports that he feels well with no chest discomfort at rest or with activity. He does admit to getting fatigued easily with activities but he is mostly sedentary. At rest and with light activity he has no shortness of breath. No heart palpitations, lightheadedness, presyncope, syncope, PND, orthopnea or edema. He is asking about starting exercises at the [facility]. He reports bilateral knee pain which affects his mobility. He is unsure at this time if he is going to need knee replacement however it is possible. He takes meds as directed. His is present. [facility] Medical History Disorder of midbrain Abnormal MRI, cervical spine Abnormal MRI of head Seizure disorder Obstructive sleep apnea Cervicalgia Seizures Elevated cholesterol HTN (hypertension) Dyslipidemia Sleep apnea Surgical History Hx of colonoscopy Family History Father HTN (hypertension) Mother No problems noted. Family/Other Stroke Cancer Breast cancer Social History Housing: House Alcohol intake: former Patient Tobacco Use Status: Never used Tobacco e-Cigarette/Vaping Use: Never Used Second Hand Smoke Exposure: No service: No Current occupational status: retired Cognitive needs: No Hearing needs: No Vision needs: No Review of Systems Const All systems reviewed & are unremarkable except as noted in HPI and below Reports fatigue Card Denies chest pain, Denies chest pain at rest, Denies chest pain with activity, Denies rapid heart rate, Denies pedal edema, Denies edema, Denies leg edema, Denies lightheadedness, Denies palpitations, Denies dyspnea, Denies dyspnea on exertion and Denies orthopnea Resp Denies cough, Denies dyspnea and Denies dyspnea on exertion GI Denies hematochezia and Denies change in stool character Musc Denies abnormal gait, Denies limited range of motion, Denies muscle cramps, Denies muscle weakness, Denies numbness, Denies radiating pain into limb, Denies stiffness and Denies tingling Neuro Denies abnormal gait, Denies numbness and Denies tingling Endo Reports fatigue and Denies palpitations Physical Exam Vital Signs: Last Vital Signs Pulse 62 03/10/24 09:15 BP 140/82 H 03/10/24 09:15 BMI result Body Mass Index 30.9 Const General: cooperative, healthy appearing, comfortable and no acute distress Orientation/consciousness: patient oriented x3 Neck Neck: Yes normal visual inspection and Yes no JVD Carotids: normal carotid upstroke Resp Effort & Inspection: normal respiratory effort Auscultation: clear to auscultation bilaterally, no rales, no rhonchi and no wheezes Cardio Jugular venous distension: no JVD Rate: regular rate Rhythm: regular rhythm Heart sounds: S1 normal heart sound present, S2 normal heart sound present, no murmurs and no rubs Neuro General: patient oriented x3 Extrem General: Yes normal to inspection and No no pedal edema Psych Appearance: grossly normal Mental Status: mental status grossly normal Speech and movement: Normal speech and movement present Assessment & Plan Assessment & Plan (1) CAD (coronary artery disease): Code(s): I25.10 - Atherosclerotic heart disease of [place] coronary artery without angina pectoris Category: Medical Plan: Echocardiogram done at [facility] 01/2023, following admission for seizure, which showed normal EF, basal inferior hypokinesis. He had no prior known history of CAD, prior [place]. he had no reports of chest discomfort or shortness of breath. EKG done on 06/05/2023 shows normal sinus rhythm, left axis deviation, right bundle branch block, voltage meeting criteria for LVH, rate 66. An exercise nuclear stress test was done on 06/21/2023 showing exercise 4 minutes 33 seconds, with decreased activity tolerance, no EKG changes of ischemia, nuclear imaging with possible small area of ischemia in the basal inferior inferior lateral wall. He then underwent a CTA of the coronary arteries on 11/01/2023 showing noncalcified plaque causing severe stenosis of the mid to distal 1st OM, noncalcified plaque causing moderate stenosis of the mid RCA, calcified plaque causing minimal stenosis of the LAD and its branches as well as less circumflex. On last visit he continued to deny any anginal sounding symptoms. In the absence of symptoms will continue with med management. Continue aspirin indefinitely. Continue atorvastatin 40 mg daily with ideal LDL goal less than 70. Labs done 02/07/2024 showed LDL 78. No longer on amlodipine for unclear reason. Blood pressure is mildly elevated. Will restart amlodipine 2.5 mg daily for blood pressure control. Beta-dre avoided as his resting heart rate is in the 60s, last visit it was in the 50s. Today he does admit to having fatigue with physical activity. He admits to being mostly sedentary because of bilateral knee pain. He could be having silent ischemia or symptoms masked by his low activity level. He is asking about exercising at the [facility]. He also may be needing knee surgery in the future. At this time will arrange for diagnostic cardiac catheterization to determine status of his coronary arteries. Catheterization procedure and risks including MIKHAIL, bleeding, infection, [place], stroke reviewed with him and he is agreeable to proceed. Continue current meds. Will check labs today including CBC, BMP and PT/INRs. Cardiology follow-up 2 weeks post procedure. (2) Abnormal echocardiogram: Code(s): R93.1 - Abnormal findings on diagnostic imaging of heart and coronary circulation Category: Medical Plan: As above (3) Abnormal nuclear stress test: Code(s): R94.39 - Abnormal result of other cardiovascular function study Category: Medical Plan: As above (4) HTN (hypertension): Code(s): I10 - Essential (primary) hypertension Category: Medical Plan: Initial blood pressure 140/82, recheck done by me 156/84. He is currently on lisinopril 40 mg daily. On last visit he was also on amlodipine. Will restart amlodipine 2.5 mg daily. (5) Sleep apnea: Comment: Well controlled follows with pcp Code(s): G47.30 - Sleep apnea, unspecified Category: Medical Plan: Compliant with CPAP (6) Dyslipidemia: Code(s): E78.5 - Hyperlipidemia, unspecified Category: Medical Plan: [place] LDL goal less than 70 at present. Labs done 02/07/2024 showed LDL 78. At this time will continue atorvastatin to 40 mg daily. Cardiac catheterization as above. Plan Time spent on chart review, documentation, interview and assessment Orders: Orders Cardiac Cath LT Diagnostic Today I25.10 - Atherosclerotic heart disease of [place] coronary artery without angina pectoris, R93.1 - Abnormal findings on diagnostic imaging of heart and coronary circulation, R94.39 - Abnormal result of other cardiovascular function study Complete Blood Count Auto Diff Today I25.10 - Atherosclerotic heart disease of [place] coronary artery without angina pectoris Prothrombin Time INR Today I25.10 - Atherosclerotic heart disease of [place] coronary artery without angina pectoris Basic Metabolic Panel Today I25.10 - Atherosclerotic heart disease of [place] coronary artery without angina pectoris Medications: New amlodipine restarting 2.5 mg PO DAILY 30 tabs 5RF Coding Level of Care Code Est Pt Level 4 (89267) Diagnoses CAD (coronary artery disease) I25.10 Abnormal echocardiogram R93.1 Abnormal nuclear stress test R94.39 HTN (hypertension) I10 Sleep apnea G47.30 Dyslipidemia E78.5 Time Spent (min) 30
== END 2024-03-10 09:47 | disposition home or self-care (01) ==
PROVIDERS: PCP Nurse Practitioner Family; Visit Provider Nurse Practitioner Family
DX: I25.10 Atherosclerotic heart disease of native coronary artery without angina pectoris (principal); R93.1 Abnormal findings on diagnostic imaging of heart and coronary circulation; R94.39 Abnormal result of other cardiovascular function study; I10 Essential (primary) hypertension; G47.30 Sleep apnea, unspecified; E78.5 Hyperlipidemia, unspecified
CPT/HCPCS: 99214

== ENCOUNTER 2024-03-10 08:56 | Outpatient (REF) | payer MEDICARE, SELFPAY ==
[2024-03-10 10:22] LABS: MANUAL DIFF FLAG NO
[2024-03-10 10:58] LABS: INTERNATIONAL NORM RATIO 0.9 (0.9-1.1); Prothrombin Time 11.5 SEC (11.1-13.3)
[2024-03-10 11:10] LABS: Basophils Absolute Auto 0.1 X10*3/uL (0.0-0.2); Eosinophils Absolute Auto 0.2 X10*3/uL (0.0-0.4); Eosinophils Percent Auto 2.9 % (0-4); Hematocrit 44.2 % (42.0-52.0); Hemoglobin 15.3 g/dl (14.0-18.0); Imm Gran Abs Auto 0.03 X10*3/uL (0.00-0.03); Imm Gran Pct Auto 0.5 % (0.0-0.4); Lymphocytes Absolute Auto 1.7 X10*3/uL (1.2-4.9); Mean Corpuscular HGB Conc 34.6 g/dl (31.0-36.0); Mean Corpuscular Volume 89.7 fL (80.0-98.0); Mean Platelet Volume 8.9 fL (9.4-12.4); Monocytes Absolute Auto 0.6 X10*3/uL (0.1-1.2); Monocytes Percent Auto 10.4 % (2-11); Neutrophils Absolute Auto 3.3 x10*3/uL (2.0-8.3); Neutrophils Percent Auto 56.2 % (45-73); Platelet Count 162 X10*3/uL (160-400); Red Blood Count 4.93 X10*6/uL (4.60-5.80); Red Cell Distribution Width 12.6 % (11.0-16.0); White Blood Count 5.9 X10*3/uL (4.8-10.8)
[2024-03-10 11:45] LABS: Anion Gap 12 (12-20); Blood Urea Nitrogen 12 mg/dL (9-16); Calcium 9.8 mg/dL (8.4-10.2); Carbon Dioxide 28 mmol/L (22-29); Chloride 108 mmol/L (96-108); Estimated Glomerular Filt Rate > 60; Glucose Random 104 mg/dL (60-115); Potassium 4.9 mmol/L (3.3-5.1); Sodium 143 mmol/L (135-145)
== END 2024-03-10 08:57 | disposition home or self-care (01) ==
LOC: HO.LAB 08:56
PROVIDERS: PCP Nurse Practitioner Family; Visit Provider Nurse Practitioner Family
DX: I25.10 Atherosclerotic heart disease of native coronary artery without angina pectoris (principal); R94.39 Abnormal result of other cardiovascular function study; R93.1 Abnormal findings on diagnostic imaging of heart and coronary circulation; I10 Essential (primary) hypertension; G47.30 Sleep apnea, unspecified; E78.5 Hyperlipidemia, unspecified
CPT/HCPCS: 36415; 80048; 85025; 85610; 99212

== ENCOUNTER → 2024-03-20 23:59 | Outpatient (BNV) | payer MEDICARE, SELFPAY | PROVIDERS: PCP Nurse Practitioner Family; Visit Provider Internal Medicine Cardiovascular Disease | DX: R93.1 Abnormal findings on diagnostic imaging of heart and coronary circulation (principal); Z01.810 Encounter for preprocedural cardiovascular examination | CPT/HCPCS: 93458; 99152 ==

== ENCOUNTER 2024-04-03 08:57 | Outpatient (AMB) | payer MEDICARE, SELFPAY ==
[2024-04-03 09:11] VITALS: BP 148/82; PULSE 58; BMI 31.8
--- NOTE | 2024-04-03 09:11 | MHC.OFFVIS ---
Vital Signs 04/03/24 09:11 Height 5 ft 9 in Weight 215 lb 9.793 oz BMI 31.8 BP 148/82 H Blood Pressure Location Rt brachial Position Sitting Pulse 58 Pulse Source Pulse Oximeter Intake Visit Reasons: 2wk f/up/cath Cupola Tapper Required: No Attorney Recruiter: Attorney Recruiter Present Allergies No Known Allergies Allergy (Verified 04/03/24 09:13) Medication List - Last Reconciled 04/03/24 by SATNOS Acevedo amlodipine 2.5 mg PO DAILY aspirin (Ecotrin Low Strength) 81 mg PO DAILY atorvastatin 40 mg PO BEDTIME CPAP (CPAP Machine/Device) As directed gabapentin 600 mg PO BID levetiracetam 500 mg PO lisinopril 40 mg PO DAILY [raised toilet seat daily use NS] HPI HPI 2wk f/up/cath: Details: Naresh is a 78-year-old male past medical history of hypertension, hyperlipidemia, sleep apnea with CPAP use who was seen at [facility] summer 2022 for seizure and had an echocardiogram showing basal inferior hypokinesis. Last June He was referred to Cardiology in follow-up. His nuclear stress test was abnormal and he underwent a CTA of the coronaries showing severe stenosis of the mid to distal OM, moderate stenosis of the mid RCA and minimal stenosis of the LAD. He then underwent a cardiac catheterization and now presents for follow-up Today he reports that continues to feels well with no chest discomfort at rest or with activity. He does admit to getting fatigued easily with activities but he is mostly sedentary. At rest and with light activity he has no shortness of breath. No heart palpitations, lightheadedness, presyncope, syncope, PND, orthopnea or edema. He is hoping to start exercises at the [facility]. He reports bilateral knee pain which affects his mobility. He is going to be evaluated by orthopedics and feels he may need surgery. He takes meds as directed. His is present. [facility] Medical History Disorder of midbrain Abnormal MRI, cervical spine Abnormal MRI of head Seizure disorder Obstructive sleep apnea Cervicalgia Seizures Elevated cholesterol HTN (hypertension) Dyslipidemia Sleep apnea Surgical History Hx of colonoscopy Family History Father HTN (hypertension) Mother No problems noted. Family/Other Stroke Cancer Breast cancer Social History Housing: House Alcohol intake: former Patient Tobacco Use Status: Never used Tobacco e-Cigarette/Vaping Use: Never Used Second Hand Smoke Exposure: No service: No Current occupational status: retired Cognitive needs: No Hearing needs: No Vision needs: No Review of Systems Const All systems reviewed & are unremarkable except as noted in HPI and below ENT Denies dizziness Card Denies chest pain, Denies chest pain at rest, Denies chest pain with activity, Denies rapid heart rate, Denies pedal edema, Denies edema, Denies leg edema, Denies lightheadedness, Denies palpitations, Denies dyspnea, Denies dyspnea on exertion and Denies orthopnea Resp Denies cough, Denies dyspnea and Denies dyspnea on exertion GI Denies hematochezia and Denies change in stool character Musc Denies abnormal gait, Reports limited range of motion (Knee discomfort), Denies muscle cramps, Denies muscle weakness, Denies numbness, Denies radiating pain into limb, Denies stiffness and Denies tingling Neuro Denies abnormal gait, Denies dizziness, Denies numbness and Denies tingling Endo Denies palpitations Physical Exam Vital Signs: BMI result Body Mass Index 31.8 Const General: cooperative, healthy appearing, comfortable and no acute distress Orientation/consciousness: patient oriented x3 Neck Neck: Yes normal visual inspection and Yes no JVD Carotids: normal carotid upstroke Resp Effort & Inspection: normal respiratory effort Auscultation: clear to auscultation bilaterally, no rales, no rhonchi and no wheezes Cardio Jugular venous distension: no JVD Rate: regular rate Rhythm: regular rhythm Heart sounds: S1 normal heart sound present, S2 normal heart sound present, no murmurs and no rubs Neuro General: patient oriented x3 Extrem General: Yes normal to inspection and No no pedal edema Psych Appearance: grossly normal Mental Status: mental status grossly normal Speech and movement: Normal speech and movement present Assessment & Plan Assessment & Plan (1) CAD (coronary artery disease): Code(s): I25.10 - Atherosclerotic heart disease of [place] coronary artery without angina pectoris Category: Medical Plan: Echocardiogram done at [facility] 01/2023, following admission for seizure, which showed normal EF, basal inferior hypokinesis. He had no prior known history of CAD, prior [place]. he had no reports of chest discomfort or shortness of breath. EKG done on 06/05/2023 shows normal sinus rhythm, left axis deviation, right bundle branch block, voltage meeting criteria for LVH, rate 66. An exercise nuclear stress test was done on 06/21/2023 showing exercise 4 minutes 33 seconds, with decreased activity tolerance, no EKG changes of ischemia, nuclear imaging with possible small area of ischemia in the basal inferior inferior lateral wall. He then underwent a CTA of the coronary arteries on 11/01/2023 showing noncalcified plaque causing severe stenosis of the mid to distal 1st OM, noncalcified plaque causing moderate stenosis of the mid RCA, calcified plaque causing minimal stenosis of the LAD and its branches as well as less circumflex. On last visit he continued to deny any anginal sounding symptoms but reported that he may need knee replacement surgery in the near future. He then underwent cardiac catheterization on 03/20/2023 showing [id number] diagonal stenosis, left circumflex OM1 70% stenosis, RCA minimal irregularities. Since he had no anginal symptoms the plan is to managed medically. Today he reports that he continues to feel well overall. Test results reviewed with him in detail. Continue aspirin indefinitely. Continue atorvastatin with ideal LDL goal less than 70. Labs done 02/07/2024 showed LDL 78. Will increase his atorvastatin up to 80 mg daily. Continue amlodipine for blood pressure control. Dose can be increased as needed. Beta-dre avoided as his resting heart rate is in the 50s to 60s. He may exercise as tolerated. Signs and symptoms of angina reviewed with him. Emergency care if ever needed for symptoms. Cardiology follow-up 6 months, sooner if needed. (2) Abnormal echocardiogram: Code(s): R93.1 - Abnormal findings on diagnostic imaging of heart and coronary circulation Category: Medical Plan: As above (3) Abnormal nuclear stress test: Code(s): R94.39 - Abnormal result of other cardiovascular function study Category: Medical Plan: As above (4) HTN (hypertension): Code(s): I10 - Essential (primary) hypertension Category: Medical Plan: Initial blood pressure 140/82, recheck done by me 136/78. He is currently on lisinopril 40 mg daily and amlodipine 2.5 mg daily. If blood pressure is running more elevated than his amlodipine dose can be increased. (5) Sleep apnea: Comment: Well controlled follows with pcp Code(s): G47.30 - Sleep apnea, unspecified Category: Medical Plan: Compliant with CPAP (6) Dyslipidemia: Code(s): E78.5 - Hyperlipidemia, unspecified Category: Medical Plan: [place] LDL goal less than 70 at present. Labs done 02/07/2024 showed LDL 78. Will increase his atorvastatin up to 80 mg daily. Plan for fasting lipids and CMP in 2 months. (7) S/P cardiac catheterization: Comment: 03/20/2024 lad mid bridging, [id number] diagonal stenosis, left circumflex OM1 70% stenosis, RCA minimal irregularities, right coronary dominant Code(s): Z98.890 - Other specified postprocedural states Category: Surgical Plan: Right radial catheterization site well healed (8) Preop cardiovascular exam: Code(s): Z01.810 - Encounter for preprocedural cardiovascular examination Category: Medical Plan: Patient mentioned the potential need for knee surgery in the near future. Cardiac testing as above. He may proceed with surgery with an intermediate cardiac risk. Aspirin could be held as needed and restarted as soon as cleared by surgeon to do so. Continue statin therapy. Call/consult Cardiology if needed. Plan Time spent on chart review, documentation, interview and assessment Orders: Orders Comprehensive Met. Panel 2 Months I25.10 - Atherosclerotic heart disease of [place] coronary artery without angina pectoris Lipid Panel 2 Months I25.10 - Atherosclerotic heart disease of [place] coronary artery without angina pectoris Medications: New atorvastatin Dose increased 80 mg PO BEDTIME 30 tabs 6RF Discontinued atorvastatin Discontinued Reason: Doctor's Order 40 mg PO BEDTIME 30 tabs 5RF Coding Level of Care Code Est Pt Level 4 (85344) Diagnoses CAD (coronary artery disease) I25.10 Abnormal echocardiogram R93.1 Abnormal nuclear stress test R94.39 HTN (hypertension) I10 Sleep apnea G47.30 Dyslipidemia E78.5 S/P cardiac catheterization Z98.890 Preop cardiovascular exam Z01.810 Time Spent (min) 36
== END 2024-04-03 09:35 | disposition home or self-care (01) ==
PROVIDERS: PCP Nurse Practitioner Family; Visit Provider Nurse Practitioner Family
DX: I25.10 Atherosclerotic heart disease of native coronary artery without angina pectoris (principal); R93.1 Abnormal findings on diagnostic imaging of heart and coronary circulation; R94.39 Abnormal result of other cardiovascular function study; I10 Essential (primary) hypertension; G47.30 Sleep apnea, unspecified; E78.5 Hyperlipidemia, unspecified; Z98.890 Other specified postprocedural states; Z01.810 Encounter for preprocedural cardiovascular examination
CPT/HCPCS: 99214

== ENCOUNTER → 2024-04-03 08:57 | Outpatient (BNVA) | payer MEDICARE, SELFPAY | PROVIDERS: PCP Nurse Practitioner Family; Visit Provider Nurse Practitioner Family | DX: Z01.810 Encounter for preprocedural cardiovascular examination (principal); I25.10 Atherosclerotic heart disease of native coronary artery without angina pectoris; I10 Essential (primary) hypertension; R93.1 Abnormal findings on diagnostic imaging of heart and coronary circulation; R94.39 Abnormal result of other cardiovascular function study; G47.30 Sleep apnea, unspecified; E78.5 Hyperlipidemia, unspecified; Z98.890 Other specified postprocedural states | CPT/HCPCS: 99212 ==

== ENCOUNTER 2024-06-09 08:54 | Outpatient (AMB) | payer MEDICARE, SELFPAY ==
--- NOTE | 2024-06-09 09:09 | A.OFFPC_ITS ---
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: No Allergies No Known Allergies Allergy (Verified 06/09/24 09:12) Medication List - Last Reconciled 06/09/24 by PAU AgustinP- amlodipine 2.5 mg PO DAILY aspirin (Ecotrin Low Strength) 81 mg PO DAILY atorvastatin 80 mg PO BEDTIME CPAP (CPAP Machine/Device) As directed gabapentin 600 mg PO TID levetiracetam 750 mg PO lisinopril 40 mg PO DAILY [raised toilet seat daily use NS] Tobacco use date assessed: 01/31/24 Fall risk assessment: No Falls in past year Last assessed Fall Risk: 06/09/24 Dental Screening Dental Screen Date: 01/31/24 HPI Annual PE/Missed 10/2023 HPI Details History of Present Illness The patient is a 78-year-old male presenting for a PE. Knee pain, primarily when ascending stairs and bending. The knee pain is a matter of concern for which he's planning to see an child support specialist. He also has a notable history of cardiovascular health concerns, having undergone a cardiac catheterization in the past without the need for stenting. Post-procedure, his cholesterol medication was increased from 48 mg to 80 mg. Sees a creative engagement director regularly. Additionally, the patient experiences urinary incontinence, described as an inability to hold urine effectively, which has led to social and personal inconvenience (wearing briefs). There are no recorded major urological interventions thus far. The patient has a history of seizures for which he is under epilepsy treatment, showing improvement in memory and cognitive functionality (seeing neuro). Previously, shingles was diagnosed in 2016 and resolved without recurrence. The patient reports resolution of past constipation episodes and denies current issues of chest pain, dizziness, cough, shortness of breath, blood in stool, nausea, or vomiting. PSA is up to date Health Maintenance - Plan for a colonoscopy discussed; deem ed more definitive than at-home tests. Pt's will call to schedule a appointment - Recommendations for flu vaccination an d pneumonia vaccination provided; pneumonia vaccine administered during the visit. - Discussed receiving the Shingles, Tdap , and RSV vaccines; patient advised on obtaining these at a pharmacy. - Advice on cardiovascular health monito red, including dietary considerations for managing elevated cholesterol. Social History - Functional status includes noted impro vement in cognitive abilities post- seizure episodes. - Personal inconvenience due to urinary incontinence. Review of Systems - Musculoskeletal: Reports knee pain asc ending stairs and bending. - Neurological: Denies dizziness; report s improvement in memory function related to seizures. - Cardiovascular: Denies chest pain, pal pitations. - Gastrointestinal: Denies current const ipation; notes past constipation episodes resolved. - incont verbalized - Respiratory: Denies cough, shortness o f breath. - General: Denies fever or feeling unwel l. -denies any anxiety and depression Physical Exam General: Cooperative, healthy appearing, comfortable, no acute distress and well developed, obese Orientation: Patient oriented x3 Limitations: No limitations Head: Normal to inspection Ears: Hearing grossly normal bilaterally Nose: Normal external nose present Face and sinus: Normal facial exam Eyes: Appearance normal, both eyes and all related structures Neck: Normal visual inspection and Yes full ROM Respiratory: Normal respiratory effort and able to speak in complete sentences. Clear to auscultation bilaterally Cardiovascular: Regular rate and rhythm. Normal S1 and S2 GI: Normal to inspection. Soft to palpation and nontender Skin: No rashes or lesions noted Neuro: Patient oriented x3 Extremities: Normal to inspection Results labs ordered Plan - Knee Pain: Referral to an orthopedic s pecialist confirmed. - Cardiovascular Health: Continues follo w-up with creative engagement director; medication adjustments have been made to manage cholesterol levels. - Urinary Incontinence: Referral to a ur ologist for further evaluation decided upon. - Seizure Disorder: Continues management with neurologist; showing cognitive improvement. - Vaccinations: Administered pneumonia v accine; advised on further vaccinations flu, shingles, Tdap, RSV). - Regular follow-up in six months sugges obie to monitor overall health and assess interventions. Patient was informed and verbally consented to the use of an ambient scribe for clinic note documentation during this visit. Discussion Notes I discussed the patient's knee pain, and he is advised to see an child support specialist for further evaluation. With a past cardiac catheterization and currently managed cholesterol, we are monitoring his cardiovascular status closely. Although he denies current gastrointestinal symptoms, continuous surveillance is necessary, with a need for a colonoscopy emphasized due to its diagnostic importance. For urinary incontinence, we decided on a referral to a urologist, recognizing its impact on his quality of life. I provided information on necessary vaccinations, with focus placed on his previous shingles diagnosis and proposed vaccination against recurrence. I plan to meet the patient for reevaluation in six months to ensure continued wellness and effective management of his chronic conditions. Patient Instructions - Follow up with the orthopedic speciali for knee pain. - Schedule and undergo recommended colon oscopy. - Visit a pharmacy for flu, shingles, Td ap, and RSV vaccinations. - Continue cholesterol medication as pre scribed. - Contact a urologist for further assess ment of urinary incontinence. - Return for a follow-up appointment in six months. [facility] Medical History Disorder of midbrain Abnormal MRI, cervical spine Abnormal MRI of head Seizure disorder Obstructive sleep apnea Cervicalgia Seizures Elevated cholesterol HTN (hypertension) Dyslipidemia Sleep apnea Surgical History Hx of colonoscopy Family History Father HTN (hypertension) Mother No problems noted. Family/Other Stroke Cancer Breast cancer Social History Housing: House Alcohol intake: former Patient Tobacco Use Status: Never used Tobacco e-Cigarette/Vaping Use: Never Used Second Hand Smoke Exposure: No service: No Current occupational status: retired Cognitive needs: No Hearing needs: No Vision needs: No Questionnaire PHQ-9 Over the last 2 weeks, how often have you been bothered by any of the following problems? 77429 - PHQ-9 Billing: Patient declined-do not bill Source: Developed by Drs. See Elder, Elena Jorge, Keith Calvillo and colleagues, with an educational kell from [employer]. Thrive Questionnaire Date Thrive assessed: 06/09/24 I am a: Parent/Caregiver What is your living situation today?: I have a steady place to live Within the past 12 months, did the food you bought not last and you didn't have the money to get more?: Never true Within the past 12 months, did you worry whether your food would run out before you got money to buy more?: Never true Do you have trouble paying for medicines?: No Do you have trouble getting transportation to medical appointments?: No Do you have trouble paying your heating and electricity bill?: No Do you have trouble taking care of your child, family member or friend?: No Do you have trouble with day-to-day activities such as bathing, preparing meals, shopping, managing finances, etc.?: No Are you currently unemployed and looking for a job?: Yes Are you interested in more education?: No Please select the resources that you would like help with: None Currently or been in a relationship where the following occur: No concerns reported THRIVE Score: 0 MOSES-7 AMB Questionnaire MOSES-7 Date MOSES - 7 assessed: 06/09/24 Feeling nervous, anxious, or on edge: 0 = Not at all Not being able to stop or control worryin = Not at all Worrying too much about different things: 0 = Not at all Trouble relaxin = Not at all Being so restless that it is hard to sit still: 0 = Not at all Becoming easily annoyed or irritable: 0 = Not at all Feeling afraid as if something awful might happen: 0 = Not at all Total MOSES-7 score (0-4 normal; 5-9 mild; 10-14 moderate; 15-21 severe): 0 Source: Developed by Drs. See Elder, Elena Jorge, Keith Calvillo and colleagues, with an educational kell from [employer]. MOSES-7 Assessment Billing MOSES-7 Assessment Tool: MOSES-7 Assessment 35658 Physical exam (Primary Care) Vital Signs: Last Vital Signs Pulse 66 06/09/24 09:11 BP 126/80 06/09/24 09:11 Pulse Ox 96 06/09/24 09:11 BMI result Body Mass Index 32.3 Tobacco/Smoking Status: Tobacco use Status Tobacco use date assessed 01/31/24 06/09/24 09:11 Patient Tobacco Use Status Never used Tobacco 06/09/24 09:11 e-Cigarette/Vaping Use Never Used 06/09/24 09:11 Thrive Assessment: Date of Thrive Assessment Date Thrive assessed 12/09/24 12/09/24 09:14 Currently or been in a relationship where the following occur: No concerns reported Immunizations pneumoc 20-rahel conj-dip cr(PF) 0.5 mL IM syringe Performing Provider: MARQUISE Agustin Performing Location: [facility] [place] [facility] Administered by: Jerod Velez CMA on 06/09/24 10:24 Dose Route Admin Location Dispensed Lot Number Expiration Date NDC Polisher Sand 0.5 mL IM Right Deltoid 0.5 mL [id number] 10/19/25 2865-7092-[address] VIS Given Date VIS Provided VIS Publication Date 06/09/24 Single Vaccine 21 Eligibility Eligibility Date Funding Source Not [facility] Eligible 06/09/24 Private Coding Level of Care Code Est Pt Prev Care >65y(05752) Diagnoses Physical exam Z00.00 Urinary incontinence R32 Additional Codes MOSES-7 Assessment Billing - MOSES-7 Assessment Tool: MOSES-7 Assessment 46283 ([id number]) Assessment & Plan Assessment & Plan (1) Physical exam: Code(s): Z00.00 - Encounter for general adult medical examination without abnormal findings Category: Medical (2) Urinary incontinence: Code(s): R32 - Unspecified urinary incontinence Category: Medical Plan . Orders: Orders Complete Blood Count Auto Diff Today Z00.00 - Encounter for general adult medical examination without abnormal findings Lipid Panel Today Z00.00 - Encounter for general adult medical examination without abnormal findings Comprehensive [place]. Panel Fast Today Z00.00 - Encounter for general adult medical examination without abnormal findings TSH reflex Free T4 Today Z00.00 - Encounter for general adult medical examination without abnormal findings UA CC w/rflx Micro + Cult Today Z00.00 - Encounter for general adult medical examination without abnormal findings Referrals Urology Referral R32 - Unspecified urinary incontinence
[2024-06-09 09:11] VITALS: BP 126/80; PULSE 66; O2SAT 96; BMI 32.3
== END 2024-06-09 10:20 | disposition home or self-care (01) ==
PROVIDERS: PCP Nurse Practitioner Family; Visit Provider Nurse Practitioner Family
DX: Z00.00 Encounter for general adult medical examination without abnormal findings (principal); R32 Unspecified urinary incontinence; Z23 Encounter for immunization

== ENCOUNTER → 2024-06-09 08:54 | Outpatient (BNVA) | payer MEDICARE, SELFPAY | PROVIDERS: PCP Nurse Practitioner Family; Visit Provider Nurse Practitioner Family | DX: Z00.00 Encounter for general adult medical examination without abnormal findings (principal); Z23 Encounter for immunization; R32 Unspecified urinary incontinence | CPT/HCPCS: 90471; 90677; 96127; 99397 ==

== ENCOUNTER 2024-07-15 08:54 | Outpatient (AMB) | payer MEDICARE, SELFPAY ==
--- NOTE | 2024-07-15 08:54 | MHC.OFFVIS ---
Vital Signs 07/15/24 08:56 Height 5 ft 9 in Weight 219 lb BMI 32.3 Intake Visit Reasons: Bilateral knee pains Intake Note: Naresh is a 78 year old male who presents today as a new patient for evaluation of osteoarthritis on both of his knees. He describes his knee pains as sharp in nature. Most of the pain is along the anterior aspects of his knee. He denies any locking or giving way. He has tried Tylenol and aspirin which gave him only mild relief. He wishes to hold off on surgery if at all possible. Allergies No Known Allergies Allergy (Verified 07/15/24 08:56) Medication List - Last Reconciled 07/15/24 by Duncan Cifuentes MD amlodipine 2.5 mg PO DAILY aspirin (Ecotrin Low Strength) 81 mg PO DAILY atorvastatin 80 mg PO BEDTIME CPAP (CPAP Machine/Device) As directed gabapentin 600 mg PO TID levetiracetam 750 mg PO lisinopril 40 mg PO DAILY [raised toilet seat daily use NS] [facility] Medical History Disorder of midbrain Abnormal MRI, cervical spine Abnormal MRI of head Seizure disorder Obstructive sleep apnea Cervicalgia Seizures Elevated cholesterol HTN (hypertension) Dyslipidemia Sleep apnea Surgical History Hx of colonoscopy Family History Father HTN (hypertension) Mother No problems noted. Family/Other Stroke Cancer Breast cancer Social History Housing: House Alcohol intake: former Patient Tobacco Use Status: Never used Tobacco e-Cigarette/Vaping Use: Never Used Second Hand Smoke Exposure: No service: No Current occupational status: retired Cognitive needs: No Hearing needs: No Vision needs: No Physical Exam Vital Signs: BMI result Body Mass Index 32.3 Const Other: Well-nourished well-developed very friendly male awake alert and oriented x3 in no acute distress Extrem Other: Bilateral lower extremity examination shows good capillary refill, no skin lesions noted, normal sensation light touch Bilateral knee examination shows minimal effusions, palpable crepitus with range of motion, pain with range of motion, no instability Office Procedures AMB Joint Injection/Aspiration Joint Injection/Aspiration Primary Site: left knee Prep: site was prepped using aseptic technique Injected: 40 mg of, DepoMedrol and 1% plain lidocaine Procedure: The patient tolerated the procedure well Coding - Large joint Procedure code (CPT) selection complete AMB Joint Injection/Aspiration Joint Injection/Aspiration Primary Site: right knee Prep: site was prepped using aseptic technique Injected: 40 mg of, DepoMedrol and 1% plain lidocaine Procedure: The patient tolerated the procedure well Coding - Large joint Procedure code (CPT) selection complete Results Reviewed Results Reviewed: X-rays of the patient's bilateral knee show joint space narrowing, subchondral sclerosis, no acute bony abnormalities Assessment & Plan Assessment & Plan (1) Osteoarthritis of left knee: Code(s): M17.12 - Unilateral primary osteoarthritis, left knee Category: Medical (2) Osteoarthritis of right knee: Code(s): M17.11 - Unilateral primary osteoarthritis, right knee Category: Medical Plan Mr. Lopez presents with bilateral knee pains due to osteoarthritis. The risks and benefits of bilateral knee cortisone injections were discussed at length with the patient. The patient wished to proceed. He tolerated the injections well. He will continue with his home exercise program. He will contact me prior to his follow-up appointment in 3 months should any questions or concerns arise. Feel free to call me at any time should questions regarding his orthopedic management arise. I spent 21 minutes in reviewing the patient's records and imaging studies, seeing the patient and documenting in the medical record. Orders: Orders AMB Joint Injection/Aspiration Today M17.12 - Unilateral primary osteoarthritis, left knee AMB Joint Injection/Aspiration Today M17.11 - Unilateral primary osteoarthritis, right knee Coding Level of Care Code New Pt Level 3 (91032) Complex EM visit Add On G2211 Diagnoses Osteoarthritis of left knee M17.12 Osteoarthritis of right knee M17.11 CPT Codes Coding - Large joint: 72901 - Large joint ([id number]) Coding - 91140 Large joint: 69799 - Large joint ([id number])
[2024-07-15 08:56] VITALS: BMI 32.3
== END 2024-07-15 09:26 | disposition home or self-care (01) ==
PROVIDERS: PCP Nurse Practitioner Family; Visit Provider Orthopaedic Surgery
DX: M17.0 Bilateral primary osteoarthritis of knee (principal)
CPT/HCPCS: 20610; 99203; G2211

== ENCOUNTER → 2024-07-15 08:54 | Outpatient (BNVA) | payer MEDICARE, SELFPAY | PROVIDERS: PCP Nurse Practitioner Family; Visit Provider Orthopaedic Surgery | DX: M17.0 Bilateral primary osteoarthritis of knee (principal) | CPT/HCPCS: 20610; 99202; J1010; J2003 ==

== ENCOUNTER 2024-09-04 13:16 | Outpatient (AMB) | payer MEDICARE, SELFPAY ==
--- NOTE | 2024-09-04 13:31 | A.OFFVIS_ITS ---
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 Required: No Professor Of Theatre: Professor Of Theatre Present Allergies No Known Allergies Allergy (Verified 09/04/24 13:34) Medication List - Last Reconciled 09/04/24 by Jewels Brock, NADEEM-C amlodipine 2.5 mg PO DAILY aspirin (Ecotrin Low Strength) 81 mg PO DAILY atorvastatin 80 mg PO BEDTIME CPAP (CPAP Machine/Device) As directed gabapentin 600 mg PO TID levetiracetam 750 mg PO lisinopril 40 mg PO DAILY [raised toilet seat daily use NS] HPI HPI 6m follow up: Details: Naresh is a 78-year-old male past medical history of hypertension, hyperlipidemia, sleep apnea with CPAP, prior echo showing basal inferior hypokinesis, which lead to CTA of coronaries, then cardiac cath showing moderate OM1 stenosis and RCA with minimal irregularities that was managed medically. Today he reports that continues to feels well with no chest discomfort at rest or with activity. He does admit to getting fatigued easily with activities but he is mostly sedentary. He denies no shortness of breath, PND, orthopnea. His legs swell at times. . No heart palpitations, presyncope, syncope. He reports bilateral knee pain from arthritis which affects his mobility. He is getting knee injections and wants to avoid surgery. He takes meds as directed. His is present. [facility] Medical History Disorder of midbrain Abnormal MRI, cervical spine Abnormal MRI of head Seizure disorder Obstructive sleep apnea Cervicalgia Seizures Elevated cholesterol HTN (hypertension) Dyslipidemia Sleep apnea Surgical History Hx of colonoscopy Family History Father HTN (hypertension) Mother No problems noted. Family/Other Stroke Cancer Breast cancer Social History Housing: House Alcohol intake: former Patient Tobacco Use Status: Never used Tobacco e-Cigarette/Vaping Use: Never Used Second Hand Smoke Exposure: No service: No Current occupational status: retired Cognitive needs: No Hearing needs: No Vision needs: No Review of Systems Const All systems reviewed & are unremarkable except as noted in HPI and below ENT Denies dizziness Card Denies chest pain, Denies chest pain at rest, Denies chest pain with activity, Denies rapid heart rate, Denies pedal edema, Denies edema, Denies leg edema, Denies lightheadedness, Denies palpitations, Denies dyspnea, Denies dyspnea on exertion and Denies orthopnea Resp Denies cough, Denies dyspnea and Denies dyspnea on exertion GI Denies hematochezia and Denies change in stool character Musc Denies abnormal gait, Denies limited range of motion, Denies muscle cramps, Denies muscle weakness, Denies numbness, Denies radiating pain into limb, Denies stiffness and Denies tingling Neuro Denies abnormal gait, Denies dizziness, Denies numbness and Denies tingling Endo Denies palpitations Physical Exam Vital Signs: Last Vital Signs Pulse 62 09/04/24 13:32 BP 120/72 09/04/24 13:32 BMI result Body Mass Index 32.0 Const General: cooperative, healthy appearing, comfortable and no acute distress Orientation/consciousness: patient oriented x3 Neck Neck: Yes normal visual inspection and Yes no JVD Carotids: normal carotid upstroke Resp Effort & Inspection: normal respiratory effort Auscultation: clear to auscultation bilaterally, no rales, no rhonchi and no wheezes Cardio Jugular venous distension: no JVD Rate: regular rate Rhythm: regular rhythm Heart sounds: S1 normal heart sound present, S2 normal heart sound present, no murmurs and no rubs Neuro General: patient oriented x3 Extrem General: Yes normal to inspection and No no pedal edema Psych Appearance: grossly normal Mental Status: mental status grossly normal Speech and movement: Normal speech and movement present Office Procedures EKG Details: Today, read by me, Sinus rhythm with 1st degree avb, left axis, RBBB, mod voltage criteria for LVH, rate 62, QTc 436ms [id number], Complete Assessment & Plan Assessment & Plan (1) CAD (coronary artery disease): Code(s): I25.10 - Atherosclerotic heart disease of [place] coronary artery without angina pectoris Category: Medical Plan: Echocardiogram done at [facility] 01/2023, following admission for seizure, which showed normal EF, basal inferior hypokinesis. He had no prior known history of CAD, prior IA. He had no reports of chest discomfort or shortness of breath. EKG done on 06/05/2023 shows normal sinus rhythm, left axis deviation, right bundle branch block, voltage meeting criteria for LVH, rate 66. An exercise nuclear stress test was done on 06/21/2023 showing exercise 4 minutes 33 seconds, with decreased activity tolerance, no EKG changes of ischemia, nuclear imaging with possible small area of ischemia in the basal inferior inferior lateral wall. He then underwent a CTA of the coronary arteries on 11/01/2023 showing noncalcified plaque causing severe stenosis of the mid to distal 1st OM, noncalcified plaque causing moderate stenosis of the mid RCA, calcified plaque causing minimal stenosis of the LAD and its branches as well as less circumflex. This lead to cardiac catheterization on 03/20/2023 sh owing [id number] diagonal stenosis, left circumflex OM1 70% stenosis, RCA minimal irregularities. Since he has no anginal symptoms the plan is to managed medically. EKG done today shows sinus rhythm with first-degree AV block, right bundle branch block, no significant change from prior, rate 62. Continue aspirin indefinitely. Continue atorvastatin with ideal LDL goal less than 70. He is due for fasting lipid profile. Continue amlodipine for blood pressure control. Beta-dre avoided as his resting heart rate is in the 50s to 60s. He may exercise as tolerated. Signs and symptoms of angina reviewed with him. Emergency care if ever needed for symptoms. Cardiology follow-up 6 months, sooner if needed. (2) Abnormal echocardiogram: Code(s): R93.1 - Abnormal findings on diagnostic imaging of heart and coronary circulation Category: Medical Plan: As above (3) Abnormal nuclear stress test: Code(s): R94.39 - Abnormal result of other cardiovascular function study Category: Medical Plan: As above (4) HTN (hypertension): Code(s): I10 - Essential (primary) hypertension Category: Medical Plan: Initial blood pressure 140/82, recheck done by me 136/78. He is currently on lisinopril 40 mg daily and amlodipine 2.5 mg daily. If blood pressure is running more elevated than his amlodipine dose can be increased. (5) Sleep apnea: Comment: Well controlled follows with pcp Code(s): G47.30 - Sleep apnea, unspecified Category: Medical Plan: Compliant with CPAP (6) Dyslipidemia: Code(s): E78.5 - Hyperlipidemia, unspecified Category: Medical Plan: [place] LDL goal less than 70 at present. Labs done 02/07/2024 showed LDL 78. On last visit his atorvastatin was increased to 80 mg daily. A repeat fasting lipid profile is due. Patient reminded of this (7) S/P cardiac catheterization: Comment: 03/20/2024 lad mid bridging, [id number] diagonal stenosis, left circumflex OM1 70% stenosis, RCA minimal irregularities, right coronary dominant Code(s): Z98.890 - Other specified postprocedural states Category: Surgical Plan Time spent on chart review, documentation, interview and assessment Coding Level of Care Code Est Pt Level 4 (34753) Complex EM visit Add On G2211 Diagnoses CAD (coronary artery disease) I25.10 Abnormal echocardiogram R93.1 Abnormal nuclear stress test R94.39 HTN (hypertension) I10 Sleep apnea G47.30 Dyslipidemia E78.5 S/P cardiac catheterization Z98.890 CPT Codes EKG - CPT: 12030-[id number], Complete ([id number]) Time Spent (min) 36
[2024-09-04 13:32] VITALS: BP 120/72; PULSE 62; BMI 32.0
== END 2024-09-04 13:57 | disposition home or self-care (01) ==
PROVIDERS: PCP Nurse Practitioner Family; Visit Provider Nurse Practitioner Family
DX: I25.10 Atherosclerotic heart disease of native coronary artery without angina pectoris (principal); R93.1 Abnormal findings on diagnostic imaging of heart and coronary circulation; R94.39 Abnormal result of other cardiovascular function study; I10 Essential (primary) hypertension; G47.30 Sleep apnea, unspecified; E78.5 Hyperlipidemia, unspecified; Z98.890 Other specified postprocedural states
CPT/HCPCS: 93010; 99214; G2211

== ENCOUNTER → 2024-09-04 13:16 | Outpatient (BNVA) | payer MEDICARE, SELFPAY | PROVIDERS: PCP Nurse Practitioner Family; Visit Provider Nurse Practitioner Family | DX: I25.10 Atherosclerotic heart disease of native coronary artery without angina pectoris (principal); I10 Essential (primary) hypertension; E78.5 Hyperlipidemia, unspecified; G47.30 Sleep apnea, unspecified; R93.1 Abnormal findings on diagnostic imaging of heart and coronary circulation; R94.39 Abnormal result of other cardiovascular function study; Z98.890 Other specified postprocedural states; Z99.89 Dependence on other enabling machines and devices | CPT/HCPCS: 93005; 99212 ==

== ENCOUNTER → 2024-10-14 14:26 | Outpatient (BNVA) | payer MEDICARE, SELFPAY | PROVIDERS: PCP Nurse Practitioner Family; Visit Provider Orthopaedic Surgery ==

== ENCOUNTER 2024-10-16 08:08 | Outpatient (AMB) | payer MEDICARE, SELFPAY ==
--- NOTE | 2024-10-16 08:18 | A.OFFVIS_ITS ---
Vital Signs 10/16/24 08:20 Height 5 ft 9 in Weight 216 lb BMI 31.9 Intake Visit Reasons: Bilateral knee pains Intake Note: Naresh is a 78 year old male who presents today as a new patient for evaluation of osteoarthritis on both of his knees. He describes his knee pains as sharp in nature. Most of the pain is along the anterior aspects of his knee. He denies any locking or giving way. He has tried Tylenol and aspirin which gave him only mild relief. He wishes to hold off on surgery if at all possible. Allergies No Known Allergies Allergy (Verified 10/16/24 08:21) Medication List - Last Reconciled 10/16/24 by Duncan Cifuentes MD amlodipine 2.5 mg PO DAILY aspirin (Ecotrin Low Strength) 81 mg PO DAILY atorvastatin 80 mg PO BEDTIME 90 days CPAP (CPAP Machine/Device) As directed gabapentin 600 mg PO TID levetiracetam 750 mg PO lisinopril 40 mg PO DAILY [raised toilet seat daily use NS] [facility] Medical History Disorder of midbrain Abnormal MRI, cervical spine Abnormal MRI of head Seizure disorder Obstructive sleep apnea Cervicalgia Seizures Elevated cholesterol HTN (hypertension) Dyslipidemia Sleep apnea Surgical History Hx of colonoscopy Family History Father HTN (hypertension) Mother No problems noted. Family/Other Stroke Cancer Breast cancer Social History Housing: House Alcohol intake: former Patient Tobacco Use Status: Never used Tobacco e-Cigarette/Vaping Use: Never Used Second Hand Smoke Exposure: No service: No Current occupational status: retired Cognitive needs: No Hearing needs: No Vision needs: No Physical Exam Vital Signs: BMI result Body Mass Index 31.9 Const Other: Well-nourished well-developed very friendly male awake alert and oriented x3 in no acute distress Extrem Other: Bilateral knee examination shows minimal effusions, palpable crepitus with range of motion, pain with range of motion, no instability Office Procedures AMB Joint Injection/Aspiration Joint Injection/Aspiration Primary Site: left knee Prep: site was prepped using aseptic technique Injected: 60 mg of (Durolane viscosupplementation) and 1% plain lidocaine Procedure: The patient tolerated the procedure well Coding 41023 - Large joint Procedure code (CPT) selection complete AMB Joint Injection/Aspiration Joint Injection/Aspiration Primary Site: right knee Prep: site was prepped using aseptic technique Injected: 60 mg of (Durolane viscosupplementation) and 1% plain lidocaine Procedure: The patient tolerated the procedure well Coding 56893 - Large joint Procedure code (CPT) selection complete Results Reviewed Results Reviewed: X-rays of the patient's bilateral knees taken previously show joint space narrowing, subchondral sclerosis, no acute bony abnormalities Assessment & Plan Assessment & Plan (1) Osteoarthritis of left knee: Code(s): M17.12 - Unilateral primary osteoarthritis, left knee Category: Medical (2) Osteoarthritis of right knee: Code(s): M17.11 - Unilateral primary osteoarthritis, right knee Category: Medical Plan Mr. Lopez presents with bilateral knee pains due to osteoarthritis. The risks and benefits of bilateral knee Durolane viscosupplementation injections were discussed at length with the patient. The patient wished to proceed. He tolerated the injections well. He will continue with his home exercise program. He will contact me prior to his follow-up appointment in 3 months should any questions or concerns arise. Feel free to call me at any time should questions regarding his orthopedic management arise. I spent 21 minutes in reviewing the patient's records and imaging studies, seeing the patient and documenting in the medical record. Orders: Orders AMB Joint Injection/Aspiration Today M17.12 - Unilateral primary osteoarthritis, left knee AMB Joint Injection/Aspiration Today M17.11 - Unilateral primary osteoarthritis, right knee Coding Level of Care Code Est Pt Level 3 (37514) Complex EM visit Add On G2211 Diagnoses Osteoarthritis of left knee M17.12 Osteoarthritis of right knee M17.11 CPT Codes Coding - 37967 Large joint: 67819 - Large joint ([id number]) Coding - 16467 Large joint: 59122 - Large joint ([id number])
[2024-10-16 08:20] VITALS: BMI 31.9
== END 2024-10-16 08:39 | disposition home or self-care (01) ==
LOC: HO.HOS 08:08
PROVIDERS: PCP Nurse Practitioner Family; Visit Provider Orthopaedic Surgery
DX: M17.0 Bilateral primary osteoarthritis of knee (principal)
CPT/HCPCS: 20610; 99213

== ENCOUNTER → 2024-10-16 08:08 | Outpatient (BNVA) | payer MEDICARE, SELFPAY | PROVIDERS: PCP Nurse Practitioner Family; Visit Provider Orthopaedic Surgery | DX: M17.0 Bilateral primary osteoarthritis of knee (principal) | CPT/HCPCS: 20610; 99212; J2003; J7318 ==

== ENCOUNTER 2024-12-09 09:51 | Outpatient (AMB) | payer MEDICARE, SELFPAY ==
[2024-12-09 10:03] VITALS: BP 132/84; PULSE 65; O2SAT 96; BMI 31.6
--- NOTE | 2024-12-09 10:03 | MHC.PC.OV ---
Vital Signs 12/09/24 10:03 Height 5 ft 9 in Weight 214 lb BMI 31.6 BP 132/84 Blood Pressure Location Rt brachial Position Sitting Pulse 65 Pulse Source Pulse Oximeter Pulse Oximetry (%) 96 Oxygen Delivery Method Room Air Intake Visit Reasons: 6 months follow up Facilities Maintenance Assistant Required: No Allergies No Known Allergies Allergy (Verified 12/09/24 11:01) Medication List - Last Reconciled 12/09/24 by Rehan Hayes, [employer]- amlodipine 2.5 mg PO DAILY aspirin (Ecotrin Low Strength) 81 mg PO DAILY atorvastatin 80 mg PO BEDTIME 90 days CPAP (CPAP Machine/Device) As directed gabapentin 600 mg PO TID levetiracetam 750 mg PO lisinopril 40 mg PO DAILY [raised toilet seat daily use NS] Tobacco use date assessed: 12/09/24 Fall risk assessment: No Falls in past year Last assessed Fall Risk: 12/09/24 Dental Screening Dental Screen Date: 12/09/24 Did you have a dental visit in the last 12 months?: Yes Did you have a dental problem in the last 6 months where you did not have access to dental care?: No Was dental information given to patient?: Patient has dentist HPI 6 months follow up HPI Details incontinence: ongoing, i have referred pt to urology in the past, several times. I will re-refer, and explained to pt's to supply our staff with her number. HTN: stable, denies any cp, sob, dizziness, blurred vision. HIGHLY encouraged pt to get labs drawn in the near future. He and his both understand this. [facility] Medical History Disorder of midbrain Abnormal MRI, cervical spine Abnormal MRI of head Seizure disorder Obstructive sleep apnea Cervicalgia Seizures Elevated cholesterol HTN (hypertension) Dyslipidemia Sleep apnea Surgical History Hx of colonoscopy Family History Father HTN (hypertension) Mother No problems noted. Family/Other Stroke Cancer Breast cancer Social History Housing: House Alcohol intake: former Patient Tobacco Use Status: Never used Tobacco e-Cigarette/Vaping Use: Never Used Second Hand Smoke Exposure: No service: No Current occupational status: retired Cognitive needs: No Hearing needs: No Vision needs: No Questionnaire PHQ-9 Over the last 2 weeks, how often have you been bothered by any of the following problems? 1. Little interest or pleasure in doing things: nearly every day 2. Feeling down, depressed, or hopeless: not at all 3. Trouble falling or staying asleep, or sleeping too much: several days 4. Feeling tired or having little energy: not at all 5. Poor appetite or overeating: not at all 6. Feeling bad about yourself - or that you are a failure or have let yourself or your family down: not at all 7. Trouble concentrating on things, such as reading the newspaper or watching television: not at all 8. Moving or speaking so slowly that other people could have noticed. Or the opposite - being so fidgety or restless that you have been moving around a lot more than usual: not at all 9. Thoughts that you would be better off or of hurting yourself in some way: not at all Total score: 4 Depression Screening Interpretation: Negative Depression Screening Done: Yes 03684 - PHQ-9 Billing: Yes Source: Developed by Drs. See Elder, Elena Jorge, Keith Calvillo and colleagues, with an educational kell from [employer]. Thrive Questionnaire Date Thrive assessed: 12/09/24 I am a: Patient What is your living situation today?: I have a steady place to live Within the past 12 months, did the food you bought not last and you didn't have the money to get more?: Never true Within the past 12 months, did you worry whether your food would run out before you got money to buy more?: Never true Do you have trouble paying for medicines?: No Do you have trouble getting transportation to medical appointments?: No Do you have trouble paying your heating and electricity bill?: No Do you have trouble taking care of your child, family member or friend?: No Do you have trouble with day-to-day activities such as bathing, preparing meals, shopping, managing finances, etc.?: No Are you currently unemployed and looking for a job?: Yes Are you interested in more education?: No Please select the resources that you would like help with: None Currently or been in a relationship where the following occur: No concerns reported THRIVE Score: 0 AUDIT C Alcohol Use Questionnaire (AUDIT-C) 1. How often do you have a drink containing alcohol?: 4 or more times a week 2. How many drinks containing alcohol do you have on a typical day when you are drinking?: 1 or 2 3. How often do you have six or more drinks on one occasion?: Never Total Score: 4 Score Reviewed/Action Taken: Yes MOSES-7 AMB Questionnaire MOSSE-7 Date MOSES - 7 assessed: 12/09/24 Feeling nervous, anxious, or on edge: 0 = Not at all Not being able to stop or control worryin = Not at all Worrying too much about different things: 0 = Not at all Trouble relaxin = Not at all Being so restless that it is hard to sit still: 0 = Not at all Becoming easily annoyed or irritable: 1 = Several days Feeling afraid as if something awful might happen: 0 = Not at all Total MOSES-7 score (0-4 normal; 5-9 mild; 10-14 moderate; 15-21 severe): 1 Source: Developed by Drs. See Elder, Elena Jorge, Keith aClvillo and colleagues, with an educational kell from [employer]. MOSES-7 Assessment Billing MOSES-7 Assessment Tool: MOSES-7 Assessment 44827 Physical exam (Primary Care) Vital Signs: Last Vital Signs Pulse 65 12/09/24 10:03 BP 132/84 12/09/24 10:03 Pulse Ox 96 12/09/24 10:03 Oxygen Delivery Method Room Air 12/09/24 10:03 BMI result Body Mass Index 31.6 Tobacco/Smoking Status: Tobacco use Status Tobacco use date assessed 12/09/24 12/09/24 10:04 Patient Tobacco Use Status Never used Tobacco 12/09/24 10:04 e-Cigarette/Vaping Use Never Used 12/09/24 10:04 PHQ-9: PHQ-9 Score PHQ-9: Total score 4 12/09/24 10:04 Depression Screening Interpretation: Negative Thrive Assessment: Date of Thrive Assessment Date Thrive assessed 06/10/25 06/10/25 10:04 Currently or been in a relationship where the following occur: No concerns reported Const General: cooperative Nutritional Appearance: obese Resp Auscultation: clear to auscultation bilaterally Cardio Rate: regular rate Rhythm: regular rhythm Heart sounds: S1 normal heart sound present, S2 normal heart sound present and no murmurs Extrem Right lower extremity: no edema Left lower extremity: no edema Psych Appearance: grossly normal Mental Status: mental status grossly normal Speech and movement: Normal speech and movement present Affect: normal affect Attitude: cooperative Thought process: Normal thought process present Thought content: Normal thought content present Insight: Good insight present (Psych) Judgement: Good judgement present (Psych) Coding Level of Care Code Est Pt Level 3 (76651) Diagnoses Urinary incontinence R32 HTN (hypertension) I10 Additional Codes MOSES-7 Assessment Billing - MOSES-7 Assessment Tool: MOSES-7 Assessment 76036 ([id number]) PHQ-9 - 93030 - PHQ-9 Billing: Yes ([id number]) Assessment & Plan Assessment & Plan (1) Urinary incontinence: Code(s): R32 - Unspecified urinary incontinence Category: Medical (2) HTN (hypertension): Code(s): I10 - Essential (primary) hypertension Category: Medical Plan . Orders: Referrals Urology Referral R32 - Unspecified urinary incontinence
== END 2024-12-09 10:59 | disposition home or self-care (01) ==
LOC: HO.HMCC 09:52
PROVIDERS: PCP Nurse Practitioner Family; Visit Provider Nurse Practitioner Family
DX: R32 Unspecified urinary incontinence (principal); I10 Essential (primary) hypertension

== ENCOUNTER → 2024-12-09 09:51 | Outpatient (BNVA) | payer MEDICARE, SELFPAY | PROVIDERS: PCP Nurse Practitioner Family; Visit Provider Nurse Practitioner Family | DX: R32 Unspecified urinary incontinence (principal); I10 Essential (primary) hypertension | CPT/HCPCS: 96127; 99212 ==

== ENCOUNTER 2024-12-10 08:34 | Outpatient (REF) | payer MEDICARE, SELFPAY ==
[2024-12-10 10:23] LABS: MANUAL DIFF FLAG NO
[2024-12-10 10:35] LABS: Basophils Absolute Auto 0.1 X10*3/uL (0.0-0.2); Eosinophils Absolute Auto 0.2 X10*3/uL (0.0-0.4); Eosinophils Percent Auto 3.7 % (0-4); Hematocrit 43.1 % (42.0-52.0); Hemoglobin 14.8 g/dl (14.0-18.0); Imm Gran Abs Auto 0.03 X10*3/uL (0.00-0.03); Imm Gran Pct Auto 0.5 % (0.0-0.4); Lymphocytes Absolute Auto 1.7 X10*3/uL (1.2-4.9); Lymphocytes Percent Auto 28.9 % (20-40); Mean Corpuscular HGB Conc 34.3 g/dl (31.0-36.0); Mean Corpuscular Hemoglobin 31.2 pg (27.0-33.0); Mean Corpuscular Volume 90.9 fL (80.0-98.0); Mean Platelet Volume 8.8 fL (9.4-12.4); Monocytes Absolute Auto 0.6 X10*3/uL (0.1-1.2); Monocytes Percent Auto 10.7 % (2-11); Neutrophils Absolute Auto 3.3 x10*3/uL (2.0-8.3); Neutrophils Percent Auto 55.2 % (45-73); Platelet Count 182 X10*3/uL (160-400); Red Blood Count 4.74 X10*6/uL (4.60-5.80); Red Cell Distribution Width 12.4 % (11.0-16.0); White Blood Count 5.9 X10*3/uL (4.8-10.8)
[2024-12-10 10:52] LABS: Alanine Aminotransferase 33 U/L (0-40); Albumin Level 4.1 g/dL (3.5-5.0); Alkaline Phosphatase 65 U/L (39-117); Anion Gap 9 (12-20); Aspartate Amino Transferase 33 U/L (5-37); Bilirubin Total 0.9 mg/dL (0.0-1.0); Blood Urea Nitrogen 12 mg/dL (9-16); Calcium 9.4 mg/dL (8.4-10.2); Carbon Dioxide 28 mmol/L (22-29); Chloride 106 mmol/L (96-108); Cholesterol 149 mg/dL (<200); Estimated Glomerular Filt Rate > 60; Glucose Fasting 97 mg/dL (60-99); HDL Cholesterol 50 mg/dL (>40); LDL Cholesterol Calculated 85 mg/dL (<100); Potassium 4.5 mmol/L (3.3-5.1); Sodium 138 mmol/L (135-145); Total Protein 7.2 g/dL (6.5-8.0); Triglycerides 70 mg/dL (<150)
[2024-12-10 11:01] LABS: TSH reflex Free T4 1.18 uIU/mL (0.32-4.0)
== END 2024-12-10 08:35 | disposition home or self-care (01) ==
LOC: HO.HMGCLDS 08:34
PROVIDERS: PCP Nurse Practitioner Family; Visit Provider Nurse Practitioner Family
DX: Z00.00 Encounter for general adult medical examination without abnormal findings (principal); Z12.5 Encounter for screening for malignant neoplasm of prostate
CPT/HCPCS: 36415; 80053; 80061; 84443; 85025

== ENCOUNTER 2024-12-11 06:00 | Outpatient (REF) | payer MEDICARE, SELFPAY ==
[2024-12-11 13:15] LABS: Appearance Urine Clear; Color Urine Yellow; Glucose Urine UA Negative (Negative); Leukocyte Esterase Urine Negative (Negative); Nitrite Urine Negative (Negative); Urine Blood Negative (Negative); Urine Ketones Negative (Negative); Urine Protein Negative (Neg-Trace)
== END 2024-12-11 06:01 | disposition home or self-care (01) ==
LOC: HO.HMGCLNP 06:00
PROVIDERS: PCP Nurse Practitioner Family; Visit Provider Nurse Practitioner Family
DX: Z00.00 Encounter for general adult medical examination without abnormal findings (principal)
CPT/HCPCS: 81003

== ENCOUNTER 2025-01-15 08:20 | Outpatient (AMB) | payer MEDICARE, SELFPAY ==
[2025-01-15 08:21] VITALS: BMI 31.6
--- NOTE | 2025-01-15 08:21 | MHC.OFFVIS ---
Vital Signs 01/15/25 08:21 Height 5 ft 9 in Weight 214 lb BMI 31.6 Intake Visit Reasons: OV-Durolane B/L knee inj-follow up-10/16/24 Intake Note: Naresh is a 79 year old male who presents with complaints of bilateral knee pains. At his last visit he had by a lateral Durolane viscosupplementation injections which gave him minimal relief. Wishes to hold off on surgery for as long as possible. He has tried Tylenol and anti-inflammatory medicines as well as physical therapy exercises which gave him minimal relief. Allergies No Known Allergies Allergy (Verified 01/15/25 08:21) Medication List - Last Reconciled 01/15/25 by Duncan Cifuentes MD amlodipine 2.5 mg PO DAILY aspirin (Ecotrin Low Strength) 81 mg PO DAILY atorvastatin 80 mg PO BEDTIME 90 days CPAP (CPAP Machine/Device) As directed gabapentin 600 mg PO TID levetiracetam 750 mg PO lisinopril 40 mg PO DAILY [raised toilet seat daily use NS] [facility] Medical History Disorder of midbrain Abnormal MRI, cervical spine Abnormal MRI of head Seizure disorder Obstructive sleep apnea Cervicalgia Seizures Elevated cholesterol HTN (hypertension) Dyslipidemia Sleep apnea Surgical History Hx of colonoscopy Family History Father HTN (hypertension) Mother No problems noted. Family/Other Stroke Cancer Breast cancer Social History Housing: House Alcohol intake: former Patient Tobacco Use Status: Never used Tobacco e-Cigarette/Vaping Use: Never Used Second Hand Smoke Exposure: No service: No Current occupational status: retired Cognitive needs: No Hearing needs: No Vision needs: No Physical Exam Vital Signs: BMI result Body Mass Index 31.6 Const Other: Well-nourished well-developed very friendly male awake alert and oriented x3 in no acute distress Extrem Other: Bilateral knee examination shows minimal effusions, palpable crepitus with range of motion, pain with range of motion, no instability Office Procedures AMB Joint Injection/Aspiration Joint Injection/Aspiration Primary Site: left knee Prep: site was prepped using aseptic technique Injected: 40 mg of, DepoMedrol and 1% plain lidocaine Procedure: The patient tolerated the procedure well Coding 11942 - Large joint Procedure code (CPT) selection complete AMB Joint Injection/Aspiration Joint Injection/Aspiration Primary Site: right knee Prep: site was prepped using aseptic technique Injected: 40 mg of, DepoMedrol and 1% plain lidocaine Procedure: The patient tolerated the procedure well Coding 53853 - Large joint Procedure code (CPT) selection complete Results Reviewed Results Reviewed: X-rays of the patient's bilateral knees taken previously show joint space narrowing, subchondral sclerosis, no acute bony abnormalities Assessment & Plan Assessment & Plan (1) Osteoarthritis of left knee: Code(s): M17.12 - Unilateral primary osteoarthritis, left knee Category: Medical (2) Osteoarthritis of right knee: Code(s): M17.11 - Unilateral primary osteoarthritis, right knee Category: Medical Plan Mr. Lopez presents with bilateral knee pains due to osteoarthritis. The risks and benefits of bilateral knee cortisone injections were discussed at length with the patient. The patient wished to proceed. He tolerated the injections well. He will continue with his activity modifications. He will contact me prior to his follow-up appointment in 3 months should any questions or concerns arise. Feel free to call me at any time should questions regarding his orthopedic management arise. I spent 22 minutes in reviewing the patient's records and imaging studies, seeing the patient and documenting in the medical record. Orders: Orders AMB Joint Injection/Aspiration Today M17.12 - Unilateral primary osteoarthritis, left knee AMB Joint Injection/Aspiration Today M17.11 - Unilateral primary osteoarthritis, right knee Coding Level of Care Code Est Pt Level 3 (96002) Complex EM visit Add On G2211 Diagnoses Osteoarthritis of left knee M17.12 Osteoarthritis of right knee M17.11 CPT Codes Coding - 27151 Large joint: 60132 - Large joint ([id number]) Coding - 19005 Large joint: 96445 - Large joint ([id number])
== END 2025-01-15 08:43 | disposition home or self-care (01) ==
LOC: HO.HOS 08:20
PROVIDERS: PCP Nurse Practitioner Family; Visit Provider Orthopaedic Surgery
DX: M17.0 Bilateral primary osteoarthritis of knee (principal)
CPT/HCPCS: 20610; 99213

== ENCOUNTER → 2025-01-15 08:20 | Outpatient (BNVA) | payer MEDICARE, SELFPAY | PROVIDERS: PCP Nurse Practitioner Family; Visit Provider Orthopaedic Surgery | DX: M17.0 Bilateral primary osteoarthritis of knee (principal) | CPT/HCPCS: 20610; 99212; J1010; J2003 ==

== ENCOUNTER 2025-02-04 07:59 | Outpatient (AMB) | payer MEDICARE, SELFPAY ==
--- NOTE | 2025-02-04 08:03 | A.OFFVIS_ITS ---
Intake Visit Reasons: urinary incontinence Intake Note: Patient is present for URINARY INCONTINENCE Urology Medication:NONE Antibiotic Allergy:NONE Blood Thinner:ASPIRIN TODAY'S PVR:42ML'S Wig Comber Required: No Allergies No Known Allergies Allergy (Verified 02/04/25 08:40) Medication List - Last Reconciled 02/04/25 by MADHAVI Boateng-ELIEZER amlodipine 2.5 mg PO DAILY aspirin (Ecotrin Low Strength) 81 mg PO DAILY atorvastatin 80 mg PO BEDTIME 90 days gabapentin 600 mg PO TID levetiracetam 750 mg PO lisinopril 40 mg PO DAILY [raised toilet seat daily use NS] HPI Comments Details: Naresh is a very pleasant 79-year-old male patient of Dr. Cohen who was accompanied by his at today's office. He has a past medical history of disorder of midbrain, seizure disorder, obstructive sleep apnea, hypercholesteremia, and hypertension. He presents to the office today as a new patient for urinary incontinence. In discussion with the patient today he reports for many years he has been experiencing issues with incontinence however more recently has found these episodes to be bothersome. He discusses episodes of urge incontinence as well as unsensed incontinence. She discusses use utilizing 1-3 adult diapers per day for this issue. In office urinalysis results reviewed with the patient today. PVR 42 mL. We did discussed at length potential causes of incontinence as well as further treatment options and risks and benefits of these treatment options. In review of patient's chart it appears PSAs are as follows: 12/21 3.1, 06/22 3.0, 02/21 1.7. 05/24 1.9, 02/22 2.5 He denies hematuria, dysuria, foul smelling urine, changes to urinary stream, flank pain, fever, and or chills. We did discuss healthy bathroom behaviors as well as lifestyle modifications to assist with incontinence. We discussed obtaining retroperitoneal ultrasound for further assessment evaluation. All questions were answered. He otherwise offers no other issues or concerns at this time. The urinary incontinence began several years ago and has progressively worsened over time. Initially, the patient experienced occasional episodes but now reports frequent incidents of incontinence, requiring the use of absorbent pads. The patient often does not feel the urge to urinate and experiences involuntary leakage, sometimes without awareness. The patient has attempted to manage the condition by waiting for the urge to urinate, but often finds himself unable to void when reaching the bathroom. There is no associated fecal incontinence. Plan The plan includes obtaining blood work to assess prostate health and an ultrasound of the kidneys and bladder to evaluate the urinary system. Lifestyle modifications were discussed, including regular bathroom use without waiting for the urge to urinate, and alternating between sitting and standing while urinating to help relax the bladder muscles. The patient expressed interest in pursuing pelvic floor therapy, which involves program to strengthen bladder muscles. The patient opted to defer urodynamic testing and or cystoscopy at this time. Patient was informed and verbally consented to the use of an ambient scribe for clinic note documentation during this visit. Discussion Notes I discussed with the patient the nature of urinary incontinence and the importance of regular bathroom habits to manage symptoms. We reviewed the options for managing incontinence, including pelvic floor therapy, medications, urodynamic testing, and or cystoscopy for further assessment evaluation. The patient expressed a preference for non-pharmacological interventions, specifically pelvic floor therapy, and agreed to proceed with this option. [facility] Medical History Disorder of midbrain Abnormal MRI, cervical spine Abnormal MRI of head Seizure disorder Obstructive sleep apnea Cervicalgia Seizures Elevated cholesterol HTN (hypertension) Dyslipidemia Sleep apnea Surgical History Hx of colonoscopy Family History Father HTN (hypertension) Mother No problems noted. Family/Other Stroke Cancer Breast cancer Social History Housing: House Alcohol intake: former Patient Tobacco Use Status: Never used Tobacco e-Cigarette/Vaping Use: Never Used Second Hand Smoke Exposure: No service: No Current occupational status: retired Cognitive needs: No Hearing needs: No Vision needs: No Review of Systems Const All systems reviewed & are unremarkable except as noted in HPI and below Physical Exam Const General: cooperative, healthy appearing, comfortable, no acute distress, well developed, alert and awake Nutritional Appearance: overweight Orientation/consciousness: patient oriented x3 Limitations: no limitations HEENT Head: Yes normal to inspection, Yes normocephalic and Yes atraumatic Ears: hearing grossly normal bilaterally Eyes General: appearance normal, both eyes and all related structures Neck Neck: Yes normal visual inspection and Yes trachea midline Chest Chest palpation & inspection: normal inspection of the chest Resp Effort & Inspection: normal respiratory effort and able to speak in complete sentences Cardio Rate: regular rate GI Inspection: Yes normal to inspection General: Yes no CVA tenderness Back/Spine/Pelvis Back: no CVA tenderness Skin General skin exam: no rashes or lesions noted Neuro General: patient oriented x3 Extrem General: Yes normal to inspection Psych Appearance: grossly normal and well kempt Mental Status: mental status grossly normal Speech and movement: Normal speech and movement present and Clear speech present Affect: normal affect Attitude: cooperative Thought process: Normal thought process present Thought content: Normal thought content present Insight: Fair insight present (Psych) Judgement: Fair judgement present (Psych) Office Procedures Post Void Residual Post Residual Void Post Void Residual (PVR): 42 73712-[id number] Void Residual by ultrasound Results AMB Urinalysis, Automated UA Leukoctes 0 Nelsy/uL Last Edit by DIAN Tierney on 02/04/25 08:16 UA Nitrite Negative Last Edit by DIAN Tierney on 02/04/25 08:16 UA Urobilinogen 0.2 mg/dL Last Edit by DIAN Tierney on 02/04/25 08:1 6 UA Protein 0 mg/dL Last Edit by DIAN Tierney on 02/04/25 08:16 UA pH 6.0 Last Edit by DIAN Tierney on 02/04/25 08:16 UA Blood 0 Cipriano/uL Last Edit by DIAN Tierney on 02/04/25 08:16 UA Specific [place] 1.010 Last Edit by DIAN Tierney on 02/04/25 08: 16 UA Ketone Negative Last Edit by DIAN Tierney on 02/04/25 08:16 UA Bilirubin 0 mg/dL Last Edit by DIAN Tierney on 02/04/25 08:16 UA Glucose 0 mg/dL Last Edit by DIAN Tierney on 02/04/25 08:16 Results Reviewed Results Reviewed: Laboratory Last Values Urine pH (Auto) 6.0 02/04/25 08:15 Specific [place] (Auto) 1.010 02/04/25 08:15 Urine Protein (Auto) 0 mg/dL 02/04/25 08:15 Glucose (UA)(Auto) 0 mg/dL 02/04/25 08:15 Urine Ketones (Auto) Negative 02/04/25 08:15 Urine Blood (Auto) 0 Cipriano/uL 02/04/25 08:15 Urine Nitrite (Auto) Negative 02/04/25 08:15 Urine Bilirubin (Auto) 0 mg/dL 02/04/25 08:15 Urine Urobilinogen (Auto) 0.2 mg/dL 02/04/25 08:15 Leukocyte Esterase (Auto) 0 Nelsy/uL 02/04/25 08:15 Assessment & Plan Assessment & Plan (1) Urinary incontinence: Code(s): R32 - Unspecified urinary incontinence Category: Medical Plan In office urinalysis results reviewed with the patient today; as noted above. PVR 42 mL. We did discussed potential causes of urinary incontinence as well as further treatment options and risks and benefits of these treatment options. All questions were answered. We discussed healthy bathroom behaviors. Will obtain retroperitoneal ultrasound for further assessment evaluation. Will obtain PSA for further assessment evaluation. Will refer to pelvic floor therapy for further assessment evaluation. Follow-up in 1-3 months with imaging, labs, and PVR; or sooner with any issues, concerns, and or questions. Orders: Orders AMB Urinalysis Automated Today Z13.9 - Encounter for screening, unspecified US retroperitoneal comp Today R32 - Unspecified urinary incontinence PT Evaluation and Treatment Today R32 - Unspecified urinary incontinence Prostate Specific Antigen Today R32 - Unspecified urinary incontinence Patient Instructions: The patient had an opportunity to ask questions regarding the treatment plan. All questions were answered. Physical exam, labs, and imaging were discussed and reviewed in detail. As well as risks, benefits, and discussion of treatment choices. No major barriers to understanding were identified. The patient expressed understanding and agreement with the above treatment plan. The patient was made aware they should contact our office by phone for worsening of their current condition, the appearance of new symptoms, or with any questions or concerns. Compliance is encouraged with any medications and follow up testing that is ordered. It is a privilege to be allowed the opportunity to participate in? your urological care.? Again, if you have any questions or concerns If you have any questions or concerns please do not hesitate to contact me. The office is [phone]. This note is constructed using voice recognition software. While every effort has been made to ensure accuracy flower grower errors may have been included. Yours sincerely, MARQUISE Boateng Coding Level of Care Code New Pt Level 3 (26031) Diagnoses Urinary incontinence R32 CPT Codes Post Residual Void - PVR CPT Code: 71882-Cerg Void Residual by ultrasound ([id number])
== END 2025-02-04 08:41 | disposition home or self-care (01) ==
LOC: HO.HUSH 08:00
PROVIDERS: PCP Nurse Practitioner Family; Visit Provider Nurse Practitioner Family
DX: Z13.9 Encounter for screening, unspecified (principal); R32 Unspecified urinary incontinence
CPT/HCPCS: 99203

== ENCOUNTER → 2025-02-04 07:59 | Outpatient (BNVA) | payer MEDICARE, SELFPAY | PROVIDERS: PCP Nurse Practitioner Family; Visit Provider Nurse Practitioner Family | DX: R32 Unspecified urinary incontinence (principal) | CPT/HCPCS: 51798; 81003; 99202 ==

== ENCOUNTER 2025-03-10 13:42 | Outpatient (AMB) | payer MEDICARE, SELFPAY ==
[2025-03-10 13:47] VITALS: BP 126/74; PULSE 66; BMI 31.9
--- NOTE | 2025-03-10 13:47 | A.OFFVIS_ITS ---
Vital Signs 03/10/25 13:47 Height 5 ft 9 in Weight 216 lb 0.848 oz BMI 31.9 BP 126/74 Blood Pressure Location Lt brachial Position Sitting Pulse 66 Intake Visit Reasons: 6m follow up Intake Note: 6 month follow-up feeling good Measurement Advisor Required: No Coil Connector: Coil Connector Present Accompanied by: Spouse Allergies No Known Allergies Allergy (Verified 02/04/25 08:40) Medication List - Last Reconciled 03/10/25 by Jose Riley MD amlodipine 2.5 mg PO DAILY aspirin (Ecotrin Low Strength) 81 mg PO DAILY atorvastatin 80 mg PO BEDTIME 90 days gabapentin 600 mg PO TID levetiracetam 750 mg PO lisinopril 40 mg PO DAILY [raised toilet seat daily use NS] HPI Comments Details: Naresh comes for follow-up. He is presenting here with his . He has no cardiovascular symptoms. His main complaint currently is arthritis in his knee which limits his activity level. He has not been able to lose much weight. He says blood pressures been generally well controlled. He denies any exertional chest pain or shortness of breath. Denies any orthopnea, PND, leg edema. No prolonged palpitation irregular heartbeat. No lightheadedness, syncope. [facility] Medical History (Updated 03/10/25 @ 14:06 by Jose Riley MD) Disorder of midbrain Abnormal MRI, cervical spine Abnormal MRI of head Seizure disorder Obstructive sleep apnea Cervicalgia Seizures Elevated cholesterol HTN (hypertension) Dyslipidemia Sleep apnea Surgical History (Updated 03/10/25 @ 14:06 by Jose Riley MD) S/P cardiac catheterization Hx of colonoscopy Family History Father HTN (hypertension) Mother No problems noted. Family/Other Stroke Cancer Breast cancer Social History Housing: House Alcohol intake: former Patient Tobacco Use Status: Never used Tobacco e-Cigarette/Vaping Use: Never Used Second Hand Smoke Exposure: No service: No Current occupational status: retired Cognitive needs: No Hearing needs: No Vision needs: No Review of Systems Const Denies chills, Denies fatigue, Denies fever(s), Denies frequent falls, Denies weakness, Denies weight gain and Denies weight loss ENT Denies dizziness Card Denies chest pain, Denies leg edema, Denies lightheadedness, Denies palpitations, Denies dyspnea, Denies dyspnea on exertion, Denies orthopnea and Denies other (loss of consciousness) Resp Denies cough, Denies dyspnea and Denies dyspnea on exertion GI Denies hematochezia and Denies change in stool character Musc Denies abnormal gait, Denies muscle weakness, Denies numbness, Denies radiating pain into limb and Denies tingling Neuro Denies abnormal gait, Denies dizziness, Denies frequent falls, Denies numbness, Denies tingling and Denies weakness Endo Denies fatigue and Denies palpitations Physical Exam Vital Signs: Last Vital Signs Pulse 66 03/10/25 13:47 BP 126/74 03/10/25 13:47 BMI result Body Mass Index 31.9 Const General: cooperative, healthy appearing, comfortable and no acute distress Orientation/consciousness: patient oriented x3 Neck Neck: Yes normal visual inspection and Yes no JVD Carotids: normal carotid upstroke Resp Effort & Inspection: normal respiratory effort Auscultation: clear to auscultation bilaterally, no rales, no rhonchi and no wheezes Cardio Jugular venous distension: no JVD Rate: regular rate Rhythm: regular rhythm Heart sounds: S1 normal heart sound present, S2 normal heart sound present, no murmurs and no rubs Neuro General: patient oriented x3 Extrem General: Yes normal to inspection and No no pedal edema Psych Appearance: grossly normal Mental Status: mental status grossly normal Speech and movement: Normal speech and movement present Assessment & Plan Assessment & Plan (1) CAD (coronary artery disease): Code(s): I25.10 - Atherosclerotic heart disease of [place] coronary artery without angina pectoris Category: Medical Plan: CAD with moderately severe OM disease and mild RCA disease by cardiac catheterization. Currently having no symptoms. Continue aggressive medical therapy. Continue low-dose aspirin therapy for life. Continue high-intensity statin therapy. Continue participate in regular physical activity and dietary modification to improve lipids further. Continue aggressive blood pressure control. (2) HTN (hypertension): Code(s): I10 - Essential (primary) hypertension Category: Medical Plan: Hypertension which is currently well optimized advised to monitor blood pressure at home maintain a log. Goal blood pressure less than 130/84. Low-salt diet was discussed. Participate in aggressive weight loss program as well as participate in regular physical activity was discussed. His arthritis with limited and advised to follow through with orthopedics and consider knee replacement surgery to improved functionality. Will follow up in the clinic in 1 year's time, sooner p.r.n.. Thank you for allowing me to partake in his care Coding Level of Care Code Est Pt Level 4 (55544) Complex EM visit Add On G2211 Diagnoses CAD (coronary artery disease) I25.10 HTN (hypertension) I10
== END 2025-03-10 14:04 | disposition home or self-care (01) ==
LOC: HO.HCS 13:43
PROVIDERS: PCP Nurse Practitioner Family; Visit Provider Internal Medicine Cardiovascular Disease
DX: I25.10 Atherosclerotic heart disease of native coronary artery without angina pectoris (principal); I10 Essential (primary) hypertension
CPT/HCPCS: 99214; G2211

== ENCOUNTER → 2025-03-10 13:42 | Outpatient (BNVA) | payer MEDICARE, SELFPAY | PROVIDERS: PCP Nurse Practitioner Family; Visit Provider Internal Medicine Cardiovascular Disease | DX: I25.10 Atherosclerotic heart disease of native coronary artery without angina pectoris (principal); I10 Essential (primary) hypertension; Z79.82 Long term (current) use of aspirin; E78.5 Hyperlipidemia, unspecified | CPT/HCPCS: 99212 ==

== ENCOUNTER 2025-04-21 08:27 | Outpatient (AMB) | payer MEDICARE, SELFPAY ==
--- NOTE | 2025-04-21 08:30 | A.OFFVIS_ITS ---
Vital Signs 04/21/25 08:38 Height 5 ft 9 in Weight 210 lb BMI 31.0 Intake Visit Reasons: Bilateral knee pain Intake Note: Naresh, 79 years old, presents with complaints of bilateral knee pains. The patient describes his pains as sharp in nature. He has tried Tylenol and gabapentin which gave him only mild relief. He has had both cortisone injections and Durolane injections. The most recent set of injections gave him no relief. He continues to walk for exercise. He wishes to hold off on total knee replacement surgery if at all possible. He questions whether or not a compounded topical gel would help with his pain. Allergies No Known Allergies Allergy (Verified 04/21/25 08:37) Medication List - Last Reconciled 04/21/25 by Duncan Cifuentes MD amlodipine 2.5 mg PO DAILY aspirin (Ecotrin Low Strength) 81 mg PO DAILY atorvastatin 80 mg PO BEDTIME 90 days gabapentin 600 mg PO TID levetiracetam 750 mg PO lisinopril 40 mg PO DAILY [raised toilet seat daily use NS] [facility] Medical History (Updated 03/10/25 @ 14:06 by Jose Riley MD) Disorder of midbrain Abnormal MRI, cervical spine Abnormal MRI of head Seizure disorder Obstructive sleep apnea Cervicalgia Seizures Elevated cholesterol HTN (hypertension) Dyslipidemia Sleep apnea Surgical History (Updated 03/10/25 @ 14:06 by Jose Riley MD) S/P cardiac catheterization Hx of colonoscopy Family History Father HTN (hypertension) Mother No problems noted. Family/Other Stroke Cancer Breast cancer Social History Housing: House Alcohol intake: former Patient Tobacco Use Status: Never used Tobacco e-Cigarette/Vaping Use: Never Used Second Hand Smoke Exposure: No service: No Current occupational status: retired Cognitive needs: No Hearing needs: No Vision needs: No Physical Exam Vital Signs: BMI result Body Mass Index 31.0 Const Other: Well-nourished well-developed very friendly male awake alert and oriented x3 in no acute distress Extrem Other: Bilateral knee examination shows minimal effusions, palpable crepitus with range of motion, pain with range of motion, no instability Results Reviewed Results Reviewed: X-rays of the patient's bilateral knees taken previously show severe joint space narrowing most significant in the patellofemoral joint, subchondral sclerosis, no acute bony abnormalities Assessment & Plan Assessment & Plan (1) Bilateral knee pain: Code(s): M25.561 - Pain in right knee; M25.562 - Pain in left knee Category: Medical (2) Osteoarthritis of left knee: Code(s): M17.12 - Unilateral primary osteoarthritis, left knee Category: Medical (3) Osteoarthritis of right knee: Code(s): M17.11 - Unilateral primary osteoarthritis, right knee Category: Medical Plan Mr. Lopez presents with bilateral knee pains due to degenerative joint disease. I had a lengthy discussion with the patient regarding the treatment options. He wishes to hold off on total knee replacement surgery for as long as possible. I agree with this plan. I did send in a prescription for a compounded topical gel. He will continue with his exercise program. He will follow up with me on an as-needed basis should his symptoms worsen in any way to further discuss the risks and benefits of total knee replacement surgery. Feel free to call me at any time should questions regarding his orthopedic management arise. I spent 20 minutes in reviewing the patient's records and imaging studies, seeing the patient and documenting in the medical record. Coding Level of Care Code Est Pt Level 3 (06578) Complex EM visit Add On G2211 Diagnoses Bilateral knee pain M25.561; M25.562 Osteoarthritis of left knee M17.12 Osteoarthritis of right knee M17.11
[2025-04-21 08:38] VITALS: BMI 31.0
== END 2025-04-21 08:47 | disposition home or self-care (01) ==
LOC: HO.HOS 08:28
PROVIDERS: PCP Nurse Practitioner Family; Visit Provider Orthopaedic Surgery
DX: M17.0 Bilateral primary osteoarthritis of knee (principal)
CPT/HCPCS: 99213; G2211

== ENCOUNTER → 2025-04-21 08:27 | Outpatient (BNVA) | payer MEDICARE, SELFPAY | PROVIDERS: PCP Nurse Practitioner Family; Visit Provider Orthopaedic Surgery | DX: M17.0 Bilateral primary osteoarthritis of knee (principal); M25.561 Pain in right knee; M25.562 Pain in left knee | CPT/HCPCS: 99212 ==

== ENCOUNTER 2025-06-15 10:03 | Outpatient (AMB) | payer MEDICARE, SELFPAY ==
--- NOTE | 2025-06-15 10:17 | MHC.PC.OV ---
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 History of Present Illness The patient is a 79 year old male presenting for a follow-up visit for hypertension. His blood pressure is perfectly stable, and he is doing well with his hypertension management. The patient also has a history of mild cognitive impairment. He is under the care of cardiology and will follow up with them. Regarding preventative care, the patient is due for a repeat colon cancer screening. He was previously referred and seen for this in 2021. He is also due for shingles and RSV vaccinations but declined the flu vaccination. Social History - Caregiver: His is his primary caregiver. - Diet: The patient reports he and his are eating better. - Exercise: The patient is exercising. - Weight Management: He is actively and intentionally losing weight. Health Maintenance The patient was encouraged to get fasting labs in the near future and he agreed to do so. He was advised he is due for shingles and RSV vaccinations, while he declined the flu vaccine. A new referral will be placed for a repeat colon cancer screening. A follow-up for a physical is planned in the next few months, with lab work to be completed a couple of weeks prior. Review of Systems - Constitutional: Reports being in good spirits. - Cardiovascular: Denies chest pain. - Respiratory: Denies increased shortness of breath. - Gastrointestinal: Denies abdominal pain. - Psychiatric: Denies suicidal or homicidal ideation. Physical Exam General: Cooperative, healthy appearing, comfortable, no acute distress and well developed Orientation: Patient oriented x3, mild cognitive impairment Limitations: No limitations Head: Normal to inspection Ears: Hearing grossly normal bilaterally Nose: Normal external nose present Face and sinus: Normal facial exam Eyes: Appearance normal, both eyes and all related structures Neck: Normal visual inspection and Yes full ROM Respiratory: Normal respiratory effort and able to speak in complete sentences. Clear to auscultation bilaterally Cardiovascular: Regular rate and rhythm. Normal S1 and S2 GI: Normal to inspection. Soft to palpation and nontender Skin: No rashes or lesions noted Neuro: Patient oriented x3, mild cognitive impairment Extremities: Normal to inspection Results Plan 1. Hypertension The patient's hypertension is well-controlled with stable blood pressure. He will continue his current management and follow up with cardiology. 2. Mild Cognitive Impairment The patient has mild cognitive impairment and is supported by his , who is his primary caregiver. Discussion Notes I discussed that the patient is doing quite well with his hypertension, which is stable. I encouraged him to get fasting labs soon, and he agreed. I provided a list of due vaccinations, including shingles and RSV; he declined the flu vaccine. We addressed that he is due for a repeat colon screening, and I will place a new referral for this. I will follow up with him for a physical in the next few months, and labs will be obtained prior to that visit. Patient Instructions - Continue to eat better and exercise to help with weight loss. - Get fasting blood tests soon. - You are due for vaccinations for shingles and RSV. - A new referral will be made for your colon cancer screening. - Continue to see your heart doctor (education nurse) as scheduled. - Plan to have a full physical exam in the next few months. - Make sure to get your blood work done a couple of weeks before your physical exam. [facility] Medical History Disorder of midbrain Abnormal MRI, cervical spine Abnormal MRI of head Seizure disorder Obstructive sleep apnea Cervicalgia Seizures Elevated cholesterol HTN (hypertension) Dyslipidemia Sleep apnea Surgical History S/P cardiac catheterization Hx of colonoscopy Family History Father HTN (hypertension) Mother No problems noted. Family/Other Stroke Cancer Breast cancer Social History Housing: House Alcohol intake: former Patient Tobacco Use Status: Never used Tobacco e-Cigarette/Vaping Use: Never Used Second Hand Smoke Exposure: No service: No Current occupational status: retired Cognitive needs: No Hearing needs: No Vision needs: No Questionnaire PHQ-9 Over the last 2 weeks, how often have you been bothered by any of the following problems? 1. Little interest or pleasure in doing things: not at all 2. Feeling down, depressed, or hopeless: not at all 3. Trouble falling or staying asleep, or sleeping too much: not at all 4. Feeling tired or having little energy: not at all 5. Poor appetite or overeating: not at all 6. Feeling bad about yourself - or that you are a failure or have let yourself or your family down: not at all 7. Trouble concentrating on things, such as reading the newspaper or watching television: not at all 8. Moving or speaking so slowly that other people could have noticed. Or the opposite - being so fidgety or restless that you have been moving around a lot more than usual: not at all 9. Thoughts that you would be better off or of hurting yourself in some way: not at all Total score: 0 Depression Screening Interpretation: Negative Depression Screening Done: Yes 37680 - PHQ-9 Billing: Yes Source: Developed by Drs. See Elder, Elena Jorge, Keith Calvillo and colleagues, with an educational kell from [employer]. Thrive Questionnaire Date Thrive assessed: 12/09/24 I am a: Patient What is your living situation today?: I have a steady place to live Within the past 12 months, did the food you bought not last and you didn't have the money to get more?: Never true Within the past 12 months, did you worry whether your food would run out before you got money to buy more?: Never true Do you have trouble paying for medicines?: No Do you have trouble getting transportation to medical appointments?: No Do you have trouble paying your heating and electricity bill?: No Do you have trouble taking care of your child, family member or friend?: No Do you have trouble with day-to-day activities such as bathing, preparing meals, shopping, managing finances, etc.?: No Are you currently unemployed and looking for a job?: Yes Are you interested in more education?: No Please select the resources that you would like help with: None Currently or been in a relationship where the following occur: No concerns reported THRIVE Score: 0 MOSES-7 AMB Questionnaire MOSES-7 Date MOSES - 7 assessed: 12/09/24 Source: Developed by Drs. See Elder, Elena Jorge, Keith Calvillo and colleagues, with an educational kell from [employer]. Physical exam (Primary Care) Vital Signs: Last Vital Signs Pulse 56 06/15/25 10:18 Resp 16 06/15/25 10:18 BP 122/62 06/15/25 10:18 Pulse Ox 96 06/15/25 10:18 Oxygen Delivery Method Room Air 06/15/25 10:18 BMI result Body Mass Index 31.6 Tobacco/Smoking Status: Tobacco use Status Tobacco use date assessed 06/15/25 06/15/25 10:20 Patient Tobacco Use Status Never used Tobacco 06/15/25 10:20 e-Cigarette/Vaping Use Never Used 06/15/25 10:20 PHQ-9: PHQ-9 Score PHQ-9: Total score 0 06/15/25 10:20 Depression Screening Interpretation: Negative Thrive Assessment: Date of Thrive Assessment Date Thrive assessed 12/09/24 06/15/25 10:20 Currently or been in a relationship where the following occur: No concerns reported Coding Level of Care Code Est Pt Level 3 (87038) Diagnoses Screening for colon cancer Z. HTN (hypertension) I10 Additional Codes PHQ-9 - 22293 - PHQ-9 Billing: Yes ([id number]) Assessment & Plan Assessment & Plan (1) Screening for colon cancer: Code(s): Z12.11 - Encounter for screening for malignant neoplasm of colon Category: Medical (2) HTN (hypertension): Code(s): I10 - Essential (primary) hypertension Category: Medical Plan . Orders: Referrals Gastroenterology Referral Z. - Encounter for screening for malignant neoplasm of colon
[2025-06-15 10:18] VITALS: BP 122/62; PULSE 56; RESP 16; O2SAT 96; BMI 31.6
== END 2025-06-15 11:40 | disposition home or self-care (01) ==
LOC: HO.HMCC 10:04
PROVIDERS: PCP Nurse Practitioner Family; Visit Provider Nurse Practitioner Family
DX: Z12.11 Encounter for screening for malignant neoplasm of colon (principal); I10 Essential (primary) hypertension

== ENCOUNTER → 2025-06-15 10:03 | Outpatient (BNVA) | payer MEDICARE, SELFPAY | PROVIDERS: PCP Nurse Practitioner Family; Visit Provider Nurse Practitioner Family | DX: I10 Essential (primary) hypertension (principal); G31.84 Mild cognitive impairment of uncertain or unknown etiology; Z13.31 Encounter for screening for depression | CPT/HCPCS: 96127; 99212 ==